=== PATIENT | male | born 1950 | race Caucasian/White ===

== ENCOUNTER 2023-04-18 15:48 | Inpatient (IN) | payer BC, MEDICARE, SELFPAY ==
[2023-04-18] VITALS (12 sets, daily range): BP systolic 146–200; BP diastolic 84–109; BMI 35.2; BMI 33.8
--- NOTE | 2023-04-18 10:49 | ED.GENMED ---
History of Present Illness
General
Chief Complaint: Breathing Problem
Source: patient
Exam Limitations: none
Time Seen by Provider: 04/18/23 10:20
Nursing documentation reviewed up to this point in time: agreed with
Travel History
Have you had any contact with someone who has COVID-19?: No
Do you have any symptoms of coronavirus? Fever > 100 degrees, chills, cough, shortness of breath, sore throat, loss of taste or smell, muscle aches, or headache?: Yes
Symptoms:: SOB
History of Present Illness
History of Present Illness:
PT IS A 73 Y/O M with h/o IDDM, HTN, HLD, neuropathy
chronic lymphedema
here with REDDING that started about 4 days ago
he noticed that with walking he felt out of breath. it is gradually worsening and now shorter distances are causing him to feel winded.
he has had an occasional left upper chest pinching sensation, just lasting a second or two over the past few days which is not exertional
today he had to stop at the top of his steps because he was winded. this is unusual
he has had a little cough, nonproductive, no fever.
has chronic swelling in his legs, L>R and usually L is a little pink; this is abount unchanged to him
took his lisinopril this am and bp is usually controlled
no shortness of breath at rest.
Past History
Past History
ED Past Medical History: HTN, Hypercholesterolemia, IDDM and Other (Right eye cataract scar)
ED Past Surgical History: None
Social History
Tobacco: Non-smoker
Alcohol: None
Personal: Single
Living: alone
Employment: Employed
Phy Exam
Physical Exam
Physical Exam:
GENERAL: Alert , in no apparent distress
EYE: pupils equal and reactive
NECK: Supple
ENT: o/p clr, mmm.
CARDIAC: Regular rate and rhythm .
LUNGS: Clear breath sounds bilaterally, no acute respiratory distress, no wheezes/rales/rhonchi
ABDOMEN: Soft, without focal tenderness, no r/g, no cvat, normal bowel sounds
NEUROLOGICAL: Alert and oriented, no focal neuro deficits
SKIN: Warm and dry, skin intact
msk: moderate edema b/l L>R with slight redness L leg neg kemi's sign
PSYCH: Normal and appropriate interaction.
Scores
Heart Failure Risk
Heart Failure Risk Score: Not Applicable
Course
Orders/Labs/Results
Orders:
Orders
04/18/23 11:20
COVID-19 Antigen Urgent
Source: Nasal Swab
Influenza A+B Rapid Molecular Urgent
GHADA Source: Nasal Swab
Specimen Description:
04/18/23 11:28
Complete Blood Count/With Diff Urgent
Comprehensive Metabolic Panel Urgent
D-Dimer Urgent
NT-proBNP Urgent
Troponin I Urgent
04/18/23 12:04
CT Chest Pe Study Urgent
Comment:
Reason For Exam: sob, cp, elevated dimer
04/18/23 12:09
Venous Doppler Lwr Ext Bilat [US Periph Venous LOWER Ext Zac] Urgent
Comment:
Reason For Exam: lower leg swelling
04/18/23 12:24
EKG [Electrocardiogram (*1)] Urgent
Reason for Study: Chest Pain
EKG- Treatment ONCE
04/18/23 12:[address] Non Medication Order As Directed
Physician Order: PTT 6 hours after initial start of Heparin infusion
Above order entered?: Yes
04/18/23 12:40
PTT Urgent
Comment: Obtain baseline before beginning heparin infusion if not already collected
04/18/23 12:42
Heparin 9,400 units IV PRN PRN
04/18/23 12:44
Heparin 4,700 units IV PRN PRN
04/18/23 12:45
Heparin 32937 Units/250 ml 25,000 units in 250 ml IV PER PROTOCOL
Weight to be used for heparin protocol in kilograms (kg):: 117.7
Protocol:: DVT/PE
PTT Goal Range to be used:: PTT 73 to 111 seconds
Order type:: Initial
INITIAL Infusion Dose (UNITS/KG/hr) & then follow protocol:: 18 units/kg/hr
Infusion Dose in UNITS/hr & then follow protocol (UNITS/hr):: 2,000
INFUSION RATE in mL/hr & then follow protocol (mL/hr):: 20
For DVT/PE algorithm, re-bolus for low PTT?: Yes
PTT less than or equal to 64 seconds:: Re-bolus 80 units/kg (max 10,000units). Increase by 500 units/hr
(+ 5mL/hr)
PTT 64.1 to 72.9 seconds:: Re-bolus 40 units/kg (max 5,000 units). Increase by 200 units/hr
(+ 2mL/hr)
PTT 73 to 111 seconds:: Target Range. No change in rate.
PTT 111.1 to 130.9 seconds:: Decrease rate by 200 units/hr (- 2 mL/hr)
PTT 131 to 199.9 seconds:: HOLD for 1 hr. Then decrease by 400 units/hr (- 4mL/hr)
PTT greater than or equal to 200 seconds:: HOLD for 2 hrs & Notify Provider. Then decrease by 500 units/hr
(- 5mL/hr)
Lab follow-up:: Each change, PTT q6h until 2 consecutive are therapeutic. Then
PTT daily.
04/18/23 12:48
Heparin 9,400 units IV NOW STA
04/18/23 18:55
PTT Urgent
Abnormal Lab Results
04/18/23
11:28
Abs Immat Gran (auto) 0.1 H 10^3/uL
(0-0.05)
Absolute Monos (auto) 0.8 H 10^3/uL
(0.1-0.6)
Immature Gran % 0.9 H %
(0-0.5)
Monocytes % 9.4 H %
(1.7-9.3)
D-Dimer 6.78 H ug/mlFEU
(0.00-0.50)
Sodium 131 L mmol/L
(135-145)
Potassium 5.8 H mmol/L
(3.5-5.1)
BUN 26 H mg/dl
(9-20)
Glucose 199 H mg/dl
(70-99)
Troponin I 0.045 H* ng/ml
Total Protein 6.2 L g/dl
(6.3-8.2)
Albumin 3.1 L g/dl
(3.5-5.0)
04/18/23 11:28
04/18/23 11:28
Vital Signs
Initial and Last Documented VS:
Initial Vital Signs
Temp Pulse Resp BP Pulse Ox
98.4 F 81 18 190/97 94
04/18/23 09:51 04/18/23 09:51 04/18/23 09:51 04/18/23 09:51 04/18/23 09:51
Last Documented Vital Signs
Temp Pulse Resp BP Pulse Ox
98.4 F 65 15 192/100 96
04/18/23 09:51 04/18/23 13:30 04/18/23 13:30 04/18/23 13:00 04/18/23 13:30
MDM/Problems Addressed
Differential Diagnosis Includes:
chf, PE, acs, pneumoniia
MDM/Problems Addressed:
73 y/o M with h/o IDDM, htn; lymphedema;chronically L leg is larger than R
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 orr who recommended we
treat the patient with anticoagulation not IR;
hospitalist aware
dr. john was celio to make dr. lloyd aware, pulm.
*Critical Care Note
Total Time (30-74mins, 75-104mins- exclusive of procedures): Not Applicable
ED Attending Note
-
Portions of this chart may have been created with voice recognition software.� Occasional wrong word or��sound alike� substitutions may have occurred due to the inherent limitations of voice recognition software.
Discharge Plan
Departure
Patient Disposition: Admit
Date of Disposition: 04/18/23
Time of Disposition: 12:37
Admit to: IMU
Presentation/result/management discussed w/ accepting MD/DO: Hospitalist
Condition: Fair
Covid-19: Not Applicable
Discharge Problem:
Bilateral pulmonary embolism
Prescriptions:
No Action
Centrum Silver 1 EACH tablet
1 tab PO DAILY
atorvastatin 20 MG tablet
20 mg PO DAILY
cyanocobalamin (vitamin B-12) 1,000 mcg Tablet
1,000 mcg PO DAILY
gabapentin 100 mg Capsule
100 mg PO DAILY
insulin lispro [Humalog KwikPen Insulin] 100 unit/mL insulin pen
8 unit SC AC
lisinopril 20 mg Tablet
20 mg PO DAILY
insulin glargine [Lantus Solostar U-100 Insulin] 100 unit/mL (3 mL) Insulin Pen
25 unit SC HS
naproxen sodium [Aleve] 220 mg Capsule
220 mg PO DAILY
hydralazine 10 mg tablet
10 mg PO TID
Patient Comments:
04/18/2023, last filled 01/24/2023 for a 30-day supply.
Referrals:
Dean Aleman MD [Family Provider] -
Interventions
Interventions:
*Risk Screen - Suicide Last Done: 04/18/23 11:14
*General Assessment Last Done: 04/18/23 11:14
*Neglect/Abuse Screening Last Done: 04/18/23 11:14
ED- Fall Risk Assessment Last Done: 04/18/23 11:14
*ED COVID-19 Vaccine History Last Done: 04/18/23 11:14
ED- Cardiac Assessment Last Done: 04/18/23 11:15
ED- Pulmonary Assessment Last Done: 04/18/23 11:15
[2023-04-18 11:58] LABS: % Basophils 1.2 % (0-2); % Eosinophils 2.3 % (0-6); % Immature Granulocytes 0.9 % (0-0.5); % Lymphocytes 24.3 % (20.5-51.1); % Monocytes 9.4 % (1.7-9.3); % Neutrophils 61.9 % (42.2-75.2); Absolute Basophils 0.1 10^3/uL (0-0.2); Absolute Eosinophils 0.2 10^3/uL (0-0.7); Absolute Immature Granulocytes 0.1 10^3/uL (0-0.05); Absolute Monocytes 0.8 10^3/uL (0.1-0.6); Absolute Neutrophils 5.1 10^3/uL (1.4-6.5); D-Dimer 6.78 ug/mlFEU (0.00-0.50); Hematocrit 42.8 % (39.0-52.0); Mean Corpuscular Hgb 29.8 pg (27.0-31.0); Mean Corpuscular Volume 84.9 fL (80.0-94.0); Mean Platelet Volume 9.9 fL (7.4-10.4); Nucleated Red Blood Cells % 0 % (-); Platelet Count 190 10^3/uL (130-400); Red Blood Cell Count 5.04 10^6/uL (4.70-6.10); Red Cell Dist. Width 13.6 % (11.5-14.5); White Blood Cell Count 8.2 10^3/uL (4.8-10.8)
[2023-04-18 12:00] LABS: COVID-19 Antigen Negative (Negative)
[2023-04-18 12:00] LABS: ALT (SGPT) 25 U/L (0-50); AST (SGOT) 28 U/L (17-59); Albumin 3.1 g/dl (3.5-5.0); Alkaline Phosphatase 95 U/L (38-126); Blood Urea Nitrogen 26 mg/dl (9-20); Calcium 8.6 mg/dl (8.4-10.2); Carbon Dioxide 25 mmol/L (22-30); Chloride 104 mmol/L (98-107); Estimated Creatinine Clearance 80 ml/min; Glucose 199 mg/dl (70-99); Potassium 5.8 mmol/L (3.5-5.1); Sodium 131 mmol/L (135-145); Total Bilirubin 0.8 mg/dl (0.2-1.3); Total Protein 6.2 g/dl (6.3-8.2); eGFR > 60.00
[2023-04-18 12:13] LABS: NT-proBNP 634 pg/ml; Troponin I 0.045 ng/ml
--- NOTE | 2023-04-18 12:33 | ED TECH ---
A PERT ALERT was called# [id number] # Per ( [facility])@ 12:30 PM .
[2023-04-18] MEDS: HEPARIN 9400 UNITS IV (12:53)
[2023-04-18] MEDS: HEPARIN 25000 UNITS/250 ML IV (12:55)
--- NOTE | 2023-04-18 14:32 | HPS.HSE ---
Addendum entered and electronically signed by Valentin Golden MD 04/18/23 15:40:
I saw and examined the patient.
The LINUX UNIX ENGINEER or PA's note was reviewed and I agree with the note.
Comment:
73-year-old male with history of diabetes, hypertension, hyperlipidemia, neuropathy, chronic Edema coming in for dyspnea on exertion that worsened.� Symptoms initiated 4 days ago, and subsequently felt worsening shortness of breath during walking.�
Now walking short distances with symptoms.� Occasional pinching upper chest pain over the last few days.� 1 flight of stairs until feeling short of breath.� No URI symptoms.� Also has increased left lower extremity swelling compared to right.�
Hypertensive, heart rate 68.� PE noted with large central bilateral PE on CTA.� Concern for right heart strain, and small loculated pleural effusion at the right lung base.� Lower extremity ultrasounds with nonocclusive DVTs on bilateral lower
legs.� Labs with sodium 131, potassium 5.8, Trop 0.045. �proBNP 634.� Plan�echo.� Start heparin drip, anticipate Eliquis initiation.� Add IV hydralazine, placed back on oral hydralazine.� hold ACEi due to AK. Avoid overt hypotension, or aggressive
fluid resuscitation in order to avoid worsening strain. �Lokelma.� Trend troponins
Original Note:
Family Physician
-
Family Physician: Dean Aleman
Chief Complaint
-
Shortness of Breath
History of Present Illness
Patient is a 73 y/o male with PMH of insulin-dependent diabetes mellitus w/ neuropathy s/p bilateral hallux amputations, hypertension, and chronic lower extremity edema who presented to the ED complaining of dyspnea on exertion x 2 days. Patient
says he first had a cough on Sunday afternoon which has been occasionally productive of clear mucus. Later that evening, he noticed dyspnea on exertion. He went to work per usual on Sunday where the dyspnea worsened. He called his PCP on Sunday
who recommended an at-home covid test, which was negative. His PCP then recommended that he present to the ED. Work-up in the emergency department reveal central bilateral pulmonary emboli with evidence of right heart strain. Patient denies any
prior history of DVT/PE. He denies recent hospitalization/extended period of immobilization. Patient says he has never had a colonoscopy, and is unaware if his PCP has been checking his PSA.
Medical History
Past Medical History
Past Medical History: Reports Other
Additional Past Medical History:
Essential Hypertension
Hyperlipidemia
Diabetes Mellitus, Insulin Dependence
Peripheral Neuropathy
Past Surgical History: Reports Other
Additional Past Surgical History:
Right Knee Replacement
Bilateral Great Toe Amputation
Left 1st Metatarsal Head Resection
Social History
Tobacco: Non-smoker
Alcohol: None
Drug: None
Employment: Employed ([employer])
Family History
Family History: Adopted
Allergies / Home Medications
Allergies reflects when Allergies were last updated in [employer]
Home Medications with original date entered in [employer]
Allergy/Medication List:
Allergies
Allergy/AdvReac Type Severity Reaction Status Date / Time
No Known Allergies Allergy Verified 04/18/23 09:51
Home Medications
atorvastatin 20 mg tablet 20 mg PO DAILY High cholesterol 04/11/19
jixteijt-nte-jxdmo acid 0.4 mg-lycopene 300 mcg-lutein 250 mcg tablet (Centrum Silver) 1 tab PO DAILY Supplement 04/11/19
cyanocobalamin (vitamin B-12) 1,000 mcg tablet 1,000 mcg PO DAILY Supplement 01/27/22
gabapentin 100 mg capsule 100 mg PO DAILY Pain 01/27/22
insulin lispro 100 unit/mL subcutaneous pen (Humalog KwikPen (U-100) Insulin) 8 unit SC AC Diabetes 01/27/22
hydralazine 10 mg tablet 10 mg PO TID Blood Pressure 04/18/23
insulin glargine 100 unit/mL (3 mL) subcutaneous pen (Lantus Solostar U-100 Insulin) 25 unit SC HS Diabetes 04/18/23
lisinopril 20 mg tablet 20 mg PO DAILY Blood Pressure 04/18/23
naproxen sodium 220 mg capsule (Aleve) 220 mg PO DAILY Pain 04/18/23
Review of Systems
-
A 12 point ROS was completed and negative except as noted: Yes
Constitutional: Denies Fever or Chills
Respiratory: Reports Trouble Breathing; Denies Cough
Cardiac: Denies Chest Pain
Physical Exam
Vital Signs
Vital Signs
Temp Pulse Resp BP Pulse Ox
98.4 F 68 19 192/100 98
04/18/23 09:51 04/18/23 14:30 04/18/23 14:30 04/18/23 13:00 04/18/23 14:30
Physical Exam
General: Comfortable and Conversant
HEENT: Anicteric, Moist mucous membranes and Other (Blind Right Eye)
Respiratory: Clear and Non Labored Respirations
Cardiac: S1/S2 and Regular Rhythm
GI: Soft, Non Tender and Other (Protuberant)
Rectal: Deferred by Provider
Musculoskeletal: No Clubbing, No Cyanosis and Other (chronic lower extremity per patient - At present LLE edema appears greater than RLE which patient notes is usually the opoosite)
Skin: Warm, Dry and Other (LLE with mild erythema with increased warmth to touch)
Laboratory Results
-
04/18/23 11:28
04/18/23 11:28
Laboratory Results
APTT 30.0 Sec (23.4-35.0) 04/18/23 12:40
Total Bilirubin 0.8 mg/dl (0.2-1.3) 04/18/23 11:28
AST 28 U/L (17-59) 04/18/23 11:28
ALT 25 U/L (0-50) 04/18/23 11:28
Alkaline Phosphatase 95 U/L (38-126) 04/18/23 11:28
Troponin I 0.045 ng/ml H* 04/18/23 11:28
Peripheral Vascular Ultrasound:
There is nonocclusive deep venous thrombosis in the popliteal vein and gastrocnemius veins
There is nonocclusive deep venous thrombosis in the left popliteal vein
Chest CT:
There are large central bilateral pulmonary emboli
There is right heart strain with an RV/LV ratio of 4.8/4.5
Data Reviewed
-
CT Scan: Report Reviewed by me
Lab Data: Labs Reviewed by me
Old Records: Reviewed
Impression/Plan
-
Submassive Pulmonary Embolism
-Admit to IMU for close monitoring
-Check Echocardiogram
-Continue heparin drip
Hyperkalemia
-Give dose of Lokelma
-Hold Lisinopril
-Recheck potassium later this evening
Non-Ischemic Myocardial Injury
-Continue to trend troponin
Essential Hypertension
-Lisinopril on hold due to hyperkalemia
-Continue Hydralazine as prior to admission
-Add hydralazine prn for elevated BP
Hyperlipidemia
-Continue atorvastatin
Diabetes Mellitus, Insulin-Dependent
-Continue Lantus and Novolog
-Monitor sugars and continue coverage insulin
Peripheral Neuropathy
-Continue Gabapentin
Code Status: Full Code
--- NOTE | 2023-04-18 16:05 | CON.PUL ---
Consultation
Consultation Request
Date/Time Consultation Requested: 04/18/2023 - 155
Date/Time Consultation Performed: 04/18/2023 - 1600
Requesting Provider: Jacquelyn Mitchell
Performing Provider: Dr. Sargent
Reason for Consultation: Acute bilateral PE
Medical History
-
Chief Complaint: SOB
History of Present Illness:
73-year-old male with a PMHx of DM type II, hyperlipidemia, hypertension, and history of torn retina in his right eye who presents with shortness of breath that started over this past weekend. He also reports a pinching feeling to his chest. In
the ER he was afebrile to 98.4 �F, heart rate 65, respiratory rate 15, BP elevated at 192/100, and saturating 96% on room air. Labs showed elevated potassium of 5.8, mild hyponatremia to 131, mildly elevated BUN of 26, hyperglycemia to 199, mildly
elevated troponin 0.045, and D-dimer elevated at 6780. COVID antigen negative. A CTA of the chest was ordered, showing a large central bilateral pulmonary embolism with right heart strain, a BELGICA GGO and a small right lower lobe loculated pleural
effusion. Lower extremity venous duplex showed bilateral DVT involving the popliteal veins and also the right gastrocnemius vein. A PERT alert was called, and systemic anticoagulation was recommended and not CDT or mechanical thrombectomy.
Pulmonary now consulted for further management/recommendations.
When I saw the patient he was in bed, at bedside, and he was in no acute distress. He was on room air comfortably. He has no personal history of lung disease, or history of venous thromboembolism. He does not know if he has any personal
family history of VTE as he is adopted and he never investigated into his family's medical history before. He denies any recent long car rides or log plane rides. 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
day.' He currently feels well with no shortness of breath. He also denies chest pain, headache, abdominal pain, fevers or chills. His left leg is swollen and he has a DVT in the bilateral popliteal and the right gastrocnemius vein. He says that
his left leg has been off and on swollen for many years. He says it gets like that from being on his feet for so many hours in a row while at work. 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 But he denies any other exposure to asbestos since that time.
PMHx: DM type II on insulin, hyperlipidemia, hypertension, morbid obesity, history of chronic ulcer foot, History of torn retina (right eye)
PSHx: Right knee replacement; right eye surgery, Right great toe amputation (April 2019), left great toe amputation (January 2022), port placement and removal
Past Medical History
Past Medical History: Other (Above as per HPI)
Past Surgical History: Other (Above as per HPI)
Social History
Tobacco: Non-smoker
Alcohol: None
Drug: None
Family History
Family History: Other (Unknown family history - adopted)
Allergies / Home Medications
Allergies
Allergy/AdvReac Type Severity Reaction Status Date / Time
No Known Allergies Allergy Verified 04/18/23 09:51
Home Medications
Medication Instructions Recorded Confirmed Last Taken Type
atorvastatin 20 mg tablet 20 mg PO DAILY High cholesterol 04/11/19 04/18/23 04/18/23 History
jpqlhfdn-ifn-isbcq acid 0.4 1 tab PO DAILY Supplement 04/11/19 04/18/23 04/18/23 History
mg-lycopene 300 mcg-lutein 250 mcg
tablet (Centrum Silver)
cyanocobalamin (vitamin B-12) 1,000 mcg PO DAILY Supplement 01/27/22 04/18/23 04/18/23 History
1,000 mcg tablet
gabapentin 100 mg capsule 100 mg PO DAILY Pain 01/27/22 04/18/23 04/18/23 History
insulin lispro 100 unit/mL 8 unit SC AC Diabetes 01/27/22 04/18/23 04/18/23 History
subcutaneous pen (Humalog KwikPen
(U-100) Insulin)
hydralazine 10 mg tablet 10 mg PO TID Blood Pressure 04/18/23 04/18/23 04/18/23 History
insulin glargine 100 unit/mL (3 25 unit SC HS Diabetes 04/18/23 04/18/23 04/17/23 History
mL) subcutaneous pen (Lantus
Solostar U-100 Insulin)
lisinopril 20 mg tablet 20 mg PO DAILY Blood Pressure 04/18/23 04/18/23 04/18/23 History
naproxen sodium 220 mg capsule 220 mg PO DAILY Pain 04/18/23 04/18/23 04/18/23 History
(Aleve)
Review of Systems
-
History Source: Patient
All other systems: Negative unless noted (12 point ROS performed and is negative unless mentioned above.)
Vitals / Labs / Diagnostic Testing
Vital Signs
Temp Pulse Resp BP Pulse Ox
98.4 F 65 15 192/100 96
04/18/23 09:51 04/18/23 13:30 04/18/23 13:30 04/18/23 13:00 04/18/23 13:30
Lab Data
04/18/23 11:28
04/18/23 11:28
Laboratory Results
04/18/23
12:40
APTT 30.0
Microbiology
04/18/23 11:20 Nasal Swab Influenza Types A & B (FRIDA) - Final
Negative for Influenza A & B, NAAT
Negative results must be combined with clinical observations
and patient history.
Nucleic Acid Amplification test (NAAT)performed on the
[employer] platform.
Diagnostic Testing:
Physical Exam
-
HEENT: Normocephalic and Anicteric
Cardiovascular: S1/S2 and Peripheral Edema (LLE +2; right leg has no edema)
Respiratory: Clear, Wheeze (negative), Rales (negative), Rhonchi (negative) and Non-Labored Respirations
GI: Soft and Non Distended
Neurology: Awake and Alert
Skin: Warm and Dry
General: Comfortable
Assessment
-
Assessment: 73-year-old male with a PMHx of DM type II, hyperlipidemia, hypertension, and history of torn retina in his right eye who presents with shortness of breath that started over this past weekend. He also reports a pinching feeling to his
chest. In the ER he was afebrile to 98.4 �F, heart rate 65, respiratory rate 15, BP elevated at 192/100, and saturating 96% on room air. Labs showed elevated potassium of 5.8, mild hyponatremia to 131, mildly elevated BUN of 26, hyperglycemia to
199, mildly elevated troponin 0.045, and D-dimer elevated at 6780. COVID antigen negative. A CTA of the chest was ordered, showing a large central bilateral pulmonary embolism with right heart strain, a BELGICA GGO and a small right lower lobe
loculated pleural effusion. Lower extremity venous duplex showed bilateral DVT involving the popliteal veins and also the right gastrocnemius vein. A PERT alert was called, and systemic anticoagulation was recommended and not CDT or mechanical
thrombectomy. Pulmonary now consulted for further management/recommendations.
Chronic conditions SURG PHYSICIAN ASST: DM type II on insulin, hyperlipidemia, hypertension, morbid obesity, history of chronic ulcer foot, History of torn retina (right eye)
Impression:
#Bilateral submassive pulmonary embolism with high risk features including RV strain (radiographic and chemical evidence)
#Bilateral lower extremity DVT involving bilateral popliteal vein and right gastrocnemius vein
#Small right lower lobe pleural effusion (suspect this is chronic as there are regions of calcification along parietal pleural border)
#BELGICA GGO
Plan:
- Start systemic AC - use heparin gtt given the high clot burden he has in pulmonary arteries as well as his b/l LE DVT
- Check 2D-echo to assess right-sided pressures
- maintain MAP>65
- Monitor for sudden rise in heart rate >125�150bpm or sudden drop in SBP by >15-25% as this could mean that PE is worsening and patient could be developing or in impending obstructive shock
- Eventual outpatient hematology consultation for hypercoagulable workup
- if LLE becomes more erythematous and warm, then consider starting ABx for non-purulent cellulitis
- Replete K>3.5, Mg>1.8, PO4>3
- Goal BG 140-180mg/dL
- DVT ppx
Pulmonary service will continue to follow along. Eventual pulmonary outpatient follow-up with PFTs.
A moderate level of medical decision making was used for this encounter.
Data:
CTA Chest 04-18-2023:
There are large central bilateral pulmonary emboli
There is right heart strain with an RV/LV ratio of 4.8/4.5
There is small loculated pleural effusion at the right lung base
There is a 3 cm area of groundglass interstitial airway disease at the left lung apex
LE Venous Duplex 04-18-2023:
There is nonocclusive deep venous thrombosis in the popliteal vein and gastrocnemius veins on both lower extremities.
There is nonocclusive deep venous thrombosis in the left popliteal vein
[2023-04-18] MEDS: LOKELMA 10 GRAM PO (16:21)
[2023-04-18] MEDS: APRESOLINE 5 MG IV (16:54)
[2023-04-18 18:42] LABS: Troponin I 0.038 ng/ml
[2023-04-18 18:55] LABS: Glucose - Point of Care 121 mg/dl (70-99)
[2023-04-18] MEDS: APRESOLINE 10 MG PO ×2 (18:55→22:09)
[2023-04-18] MEDS: NOVOLOG FLEXPEN 8 UNITS SC (19:40)
[2023-04-18 20:09] LABS: Potassium 4.2 mmol/L (3.5-5.1)
[2023-04-18 20:33] LABS: APTT > 200 Sec (23.4-35.0)
[2023-04-18] MEDS: LANTUS 0.25 UNITS SC (22:08)
[2023-04-18 22:19] LABS: Glucose - Point of Care 136 mg/dl (70-99)
[2023-04-19] VITALS (19 sets, daily range): BP systolic 131–212; BP diastolic 80–118; BMI 31.9
--- NOTE | 2023-04-19 00:28 | PTCARENOTE ---
Addendum entered by Georgette Valencia 04/19/23 05:24:
BP 212/118. PRN hydralazine given, per APR. Pt remains asymptomatic. HR 50-60
Addendum entered by Georgette Valencia 04/19/23 04:25:
Pt had episodes of SB on monitor throughout shift while sleeping. HR as low as 49. Pt remained asymptomatic. BP elevated 170s systolic, but not within parameters of PRN. Pt maintained bedrest throughout this shift. Dentures placed in denture cup in
bathroom. Pt using urinal appropriately. Heparin gtt maintained, see worklist documentation.
Original Note:
Pt AAOx3, pleasant and cooperative. SR, BP elevated, but resolved with scheduled medication. Assessment as documented. Heparin gtt in place through R AC IV, titrated per protocol. Call whatley within reach. Pt rings appropriately and follows directions.
[2023-04-19] MEDS: HEPARIN 25000 UNITS/250 ML IV (03:45)
[2023-04-19] MEDS: APRESOLINE 5 MG IV ×2 (05:12→18:30)
[2023-04-19 05:40] LABS: APTT 143.4 Sec (23.4-35.0)
[2023-04-19 05:42] LABS: Hematocrit 41.8 % (39.0-52.0); Hemoglobin 14.6 g/dL (13.0-18.0); Mean Corp Hgb Conc. 34.9 g/dL (33.0-37.0); Mean Corpuscular Hgb 29.4 pg (27.0-31.0); Mean Corpuscular Volume 84.3 fL (80.0-94.0); Mean Platelet Volume 9.3 fL (7.4-10.4); Platelet Count 180 10^3/uL (130-400); Red Blood Cell Count 4.96 10^6/uL (4.70-6.10); Red Cell Dist. Width 13.6 % (11.5-14.5); White Blood Cell Count 7.9 10^3/uL (4.8-10.8)
[2023-04-19 05:56] LABS: Blood Urea Nitrogen 21 mg/dl (9-20); Calcium 8.7 mg/dl (8.4-10.2); Carbon Dioxide 23 mmol/L (22-30); Chloride 104 mmol/L (98-107); Estimated Creatinine Clearance 94 ml/min; Glucose 111 mg/dl (70-99); Magnesium 2.2 mg/dl (1.6-2.3); Potassium 4.2 mmol/L (3.5-5.1); Sodium 134 mmol/L (135-145); eGFR > 60.00
[2023-04-19 07:33] LABS: Glucose - Point of Care 112 mg/dl (70-99)
[2023-04-19] MEDS: NOVOLOG FLEXPEN 8 UNITS SC ×2 (08:17→18:16)
[2023-04-19] MEDS: LIPITOR 20 MG PO (08:18)
[2023-04-19] MEDS: NEURONTIN 100 MG PO (08:18)
[2023-04-19] MEDS: APRESOLINE 10 MG PO ×3 (08:18→21:22)
--- NOTE | 2023-04-19 08:28 | W.PN.PUL3 ---
Today's Communication / Plan
-
Continue systemic AC --> ok to start NOAC tonight as long as pt can afford medication once he is discharged. Can consult CM to help clarify costliness of Eliquis
Maintain SpO2>94%
Up OOB as tolerated
Encourage IS
If patient remains asymptomatic tomorrow and still on room air with SpO2 >95%, then I am ok with him being discharged home tomorrow from pulmonary standpoint
We will continue to follow along while he remains inpatient with eventual pulmonary outpatient follow-up with PFTs.
Assessment
-
Assessment: 73-year-old male with a PMHx of DM type II, hyperlipidemia, hypertension, and history of torn retina in his right eye who presents with shortness of breath that started over this past weekend. He also reports a pinching feeling to his
chest. In the ER he was afebrile to 98.4 �F, heart rate 65, respiratory rate 15, BP elevated at 192/100, and saturating 96% on room air. Labs showed elevated potassium of 5.8, mild hyponatremia to 131, mildly elevated BUN of 26, hyperglycemia to
199, mildly elevated troponin 0.045, and D-dimer elevated at 6780. COVID antigen negative. A CTA of the chest was ordered, showing a large central bilateral pulmonary embolism with right heart strain, a BELGICA GGO and a small right lower lobe
loculated pleural effusion. Lower extremity venous duplex showed bilateral DVT involving the popliteal veins and also the right gastrocnemius vein. A PERT alert was called, and systemic anticoagulation was recommended and not CDT or mechanical
thrombectomy. Pulmonary now consulted for further management/recommendations.
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
Impression:
#Bilateral submassive pulmonary embolism with high risk features including RV strain (radiographic and chemical evidence) with acute cor pulmonale
#Bilateral lower extremity DVT involving bilateral popliteal vein and right gastrocnemius vein
#Small right lower lobe pleural effusion (suspect this is chronic as there are regions of calcification along parietal pleural border)
#BELGICA GGO
Plan:
- Continue systemic AC w/ heparin gtt given the high clot burden he has in pulmonary arteries as well as his b/l LE DVT --> Ok to start NOAC tonight as long as pt can afford medication once discharged
- TTE shows normal RV size and function, with PASP elevated at 48mmHg
- Maintain MAP>65
- Monitor for sudden rise in heart rate >125�150bpm or sudden drop in SBP by >15-25% as this could mean that PE is worsening and patient could be developing or in impending obstructive shock
- Eventual outpatient hematology consultation for hypercoagulable workup
- if LLE becomes more erythematous and warm, then consider starting ABx for non-purulent cellulitis
- Replete K>3.5, Mg>1.8, PO4>3
- Goal BG 140-180mg/dL
- DVT ppx
If patient remains asymptomatic tomorrow and still on room air with SpO2 >95%, then I am ok with him being discharged home tomorrow from pulmonary standpoint. We will continue to follow along while he remains inpatient. Eventual pulmonary
outpatient follow-up with PFTs.
A moderate level of medical decision making was used for this encounter.
Data:
CTA Chest 04-18-2023:
There are large central bilateral pulmonary emboli
There is right heart strain with an RV/LV ratio of 4.8/4.5
There is small loculated pleural effusion at the right lung base
There is a 3 cm area of groundglass interstitial airway disease at the left lung apex
LE Venous Duplex 04-18-2023:
There is nonocclusive deep venous thrombosis in the popliteal vein and gastrocnemius veins on both lower extremities.
There is nonocclusive deep venous thrombosis in the left popliteal vein
TTE 04-19-2023:
�Normal left ventricular size, wall thickness and systolic function.
�No regional wall motion abnormalities are seen.
�LV ejection fraction is 55-60% by Ramirez's method of discs.
�Stage I diastolic dysfunction suggestive of abnormal relaxation.
�Normal right ventricular size and function.
�Mild tricuspid regurgitation.
�Estimated pulmonary artery pressure of 48 mmHg, assuming a right atrial
�pressure of 3 mmHg.
�No prior study available for comparison.
Subjective Data
-
Date of Service:
Date of Service: April 19, 2023
Chief Complaint: Pulmonary Follow Up
Subjective:
Pt seen this AM. Feels well. at bedside. He remains on heparin gtt. Left leg is less swollen and less red. No issues overnight. He denies chest pain, PULIDO, SOB, abd pain, N/V/f/c.
Review of Systems
General: Other (negative unless mentioned above)
Objective Data
Data Reviewed
Vital Signs / I&O / Oxygen:
Vital Signs
Temp Pulse Resp BP Pulse Ox
98.2 F 74 24 164/99 95
04/19/23 11:16 04/19/23 10:45 04/19/23 10:45 04/19/23 10:45 04/19/23 10:45
Intake and Output
04/18/23 04/19/23 04/20/23
06:59 06:59 06:59
Intake Total 240 / 240
Output Total 975 / 975
Balance -975 / -975 240 / 240
SaO2 95
Nasal Cannula flow liters per 96
minute
Physical Exam
General: Comfortable
HEENT: Normocephalic and Anicteric
Cardiovascular: S1-S2 and Peripheral Edema (+1 left leg edema)
Respiratory: Clear, Wheeze (n), Crackles (n), Rhonchi (n) and Non-Labored Respirations
GI: Soft, Non Distended, Non Tender and Normal Bowel Sounds
Neurology: AO x 3
Skin: Warm, Dry and Rash (erythema seen on anterior LLE)
Labs/Micro/Reports
Lab Data
04/19/23 05:08
04/19/23 05:08
Laboratory Results
04/18/23 04/18/23 04/19/23
12:40 19:49 05:08
APTT 30.0 > 200 H* 143.4 H
Microbiology
04/18/23 11:20 Nasal Swab Influenza Types A & B (FRIDA) - Final
Negative for Influenza A & B, NAAT
Negative results must be combined with clinical observations
and patient history.
Nucleic Acid Amplification test (NAAT)performed on the
[employer] platform.
[2023-04-19 08:54] LABS: Glycohemoglobin (HgbA1c) 10.9 % (4.0-5.6)
--- NOTE | 2023-04-19 09:08 | PTCARENOTE ---
Patient received from night supervisor. Patient resting comfortably in bed. AAO, VSS. No events noted over night. No complaints of pain. Currently on Heparin gtt 1500 units/hr which was just increased from 1100 units/hr due to PTT assessment.
Compliant with bed rest for now. Scheduled for ECHO today. Call whatley in reach.
[2023-04-19] MEDS: ZESTRIL 20 MG PO (10:10)
--- NOTE | 2023-04-19 12:03 | CARDSERVLU ---
Echocardiogram with Lumason completed after protocol screening completed. Allergies verified.
Patent IV site: Left antecubital
IV site flushed with 0.9% NaCl pre and post administration.
Diluted bolus method utilized to enhance visualization of ventricular noble.
Total volume given: _4___ mL
Patient tolerated all procedures well without complications.
Procedure and Lumason given by Silvia Contreras Legal Examiner.
[2023-04-19 12:45] LABS: Glucose - Point of Care 87 mg/dl (70-99)
[2023-04-19] MEDS: NOVOLOG FLEXPEN SC (12:50)
--- NOTE | 2023-04-19 14:32 | CM ---
CM following re: discharge planning.
Reviewed pt's chart, met with [t.
Pt is a 73 year old male, admitted with primary dx of PE.
The patient reports he resides alone in a two story home with two steps to enter. The patient has a rolling walker, cane, shower chair, shower rails, secondary rails on stairs, and outside rails entering into the home. Pt reports she just built a
walking shower. Pt reports he mostly uses a cane. Pt reports he has no immediate family and his support systems consist of many friends that can help as needed. The patient has had [facility] VN in the past. Pt expressed his desire to return back home
at discharge.
PCP: Dean Aleman.
Pharmacy: [facility].
D/C plan: pt expressed his desire to return back home with friends support.
CM will follow with discharge plan updates as hospitalization progresses
[2023-04-19 14:44] LABS: APTT 43.2 Sec (23.4-35.0)
[2023-04-19] MEDS: HEPARIN 9400 UNITS IV (15:01)
--- NOTE | 2023-04-19 15:22 | W.PN.HOSP.TC ---
Today's Communication/Plan
-
Transition to [facility]
PT/OT
Assessment / Plan
Assessment / Plan
Submassive Pulmonary Embolism
B/L DVT
-Admit to IMU for close monitoring
-Echocardiogram�no evidence of T-spine, stage I diastolic dysfunction; EF 55 to 60%
-Continue heparin drip�transition to [facility] this evening
� Will need hematology workup outpatient
�PT/OT
Hyperkalemia
-Give dose of Lokelma
-Resolved
Non-Ischemic Myocardial Injury
-Continue to trend troponin
�Most likely secondary to PE
� Troponins flat
Essential Hypertension
-Resume lisinopril, monitor BMP
-Continue Hydralazine as prior to admission
-Add hydralazine prn for elevated BP
Hyperlipidemia
-Continue atorvastatin
Diabetes Mellitus, Insulin-Dependent
-Continue Lantus and Novolog
-Monitor sugars and continue coverage insulin
- Hemoglobin A1c 10.9, follow-up outpatient for adjustment
#Hyponatremia
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
� Free water titration
� Continue to monitor
Peripheral Neuropathy
-Continue Gabapentin
Code Status: Full Code
Anticipated Discharge: 24 - 48 hours
Subjective/Interval History
-
Date of Service: April 19, 2023
feels well
Objective Data
-
Labs:
Laboratory Results
04/19/23 04/19/23 04/19/23
05:08 14:23 21:15
WBC 7.9
Hgb 14.6
Hct 41.8
Plt Count 180
APTT 143.4 H 43.2 H Pending
Sodium 134 L
Potassium 4.2
Chloride 104
Carbon Dioxide 23
BUN 21 H
Creatinine 0.9
Glucose 111 H
Calcium 8.7
Vital Signs:
Vital Signs
Temp Pulse Resp BP Pulse Ox
98.2 F 74 24 164/99 95
04/19/23 11:16 04/19/23 10:45 04/19/23 10:45 04/19/23 10:45 04/19/23 10:45
I&O
04/18/23 04/19/23 04/20/23
06:59 06:59 06:59
Intake Total 240 / 240
Output Total 975 / 975
Balance -975 / -975 240 / 240
Review of Systems
-
History Source: Patient
All other systems: Not reviewed unless documented
Physical Exam
-
General: Well Developed, No Apparent Distress, Comfortable and Obese
HEENT: Atraumatic, Moist Mucous Membranes and Other (right eye corneal opacity )
Respiratory: Clear to Auscultation
Cardiac: Regular Rhythm and S1/S2
GI: Soft, Nontender and Nondistended
Rectal: Negative Maroon Stools
Genito-urinary: No Costovertebral Tender
Musculoskeletal: No Cyanosis
Skin: Warm and Dry
Neuro: Oriented and Nonfocal/Grossly Intact; Negative Slurred Speech or Facial Droop
Hematologic / Lymphatic: No Lymphadenopathy
Data Reviewed
-
CT Scan: Image personally visualized and interpreted and Report Reviewed by me
Ultrasound: Image personally visualized and interpreted and Report Reviewed by me
Labs: Labs Reviewed by me
[2023-04-19 17:43] LABS: Glucose - Point of Care 104 mg/dl (70-99)
[2023-04-19] MEDS: ELIQUIS 10 MG PO (20:16)
[2023-04-19] MEDS: LANTUS 0.25 UNITS SC (21:22)
[2023-04-19 21:38] LABS: Glucose - Point of Care 100 mg/dl (70-99)
[2023-04-19 21:51] LABS: Hepatitis C Antibody Negative (Negative)
[2023-04-20] VITALS (13 sets, daily range): BP systolic 113–197; BP diastolic 79–129; PULSE 79–82; O2SAT 96–97; BMI 33.2
[2023-04-20] MEDS: APRESOLINE 5 MG IV (04:06)
[2023-04-20 04:32] LABS: Hematocrit 44.1 % (39.0-52.0); Hemoglobin 15.3 g/dL (13.0-18.0); Mean Corp Hgb Conc. 34.7 g/dL (33.0-37.0); Mean Corpuscular Hgb 29.3 pg (27.0-31.0); Mean Corpuscular Volume 84.5 fL (80.0-94.0); Platelet Count 193 10^3/uL (130-400); Red Blood Cell Count 5.22 10^6/uL (4.70-6.10); Red Cell Dist. Width 13.7 % (11.5-14.5); White Blood Cell Count 6.9 10^3/uL (4.8-10.8)
[2023-04-20 05:21] LABS: ALT (SGPT) 24 U/L (0-50); AST (SGOT) 30 U/L (17-59); Albumin 2.8 g/dl (3.5-5.0); Alkaline Phosphatase 83 U/L (38-126); Blood Urea Nitrogen 23 mg/dl (9-20); Calcium 8.8 mg/dl (8.4-10.2); Carbon Dioxide 21 mmol/L (22-30); Chloride 105 mmol/L (98-107); Estimated Creatinine Clearance 107 ml/min; Glucose 97 mg/dl (70-99); Potassium 4.2 mmol/L (3.5-5.1); Sodium 134 mmol/L (135-145); Total Bilirubin 0.9 mg/dl (0.2-1.3); Total Protein 5.8 g/dl (6.3-8.2); eGFR > 60.00
--- NOTE | 2023-04-20 05:44 | PTCARENOTE ---
no acute events overnight- pt given IV hydralazine x1 for high BP. heparin gtt stopped in beginning of shift and PO eliquis given.
[2023-04-20 07:58] LABS: Glucose - Point of Care 109 mg/dl (70-99)
[2023-04-20] MEDS: NOVOLOG FLEXPEN 8 UNITS SC ×2 (08:09→16:45)
[2023-04-20] MEDS: ELIQUIS 10 MG PO (08:11)
[2023-04-20] MEDS: APRESOLINE 10 MG PO (08:11)
[2023-04-20] MEDS: NEURONTIN 100 MG PO (08:12)
[2023-04-20] MEDS: ZESTRIL 20 MG PO (08:13)
[2023-04-20] MEDS: LIPITOR 20 MG PO (08:13)
--- NOTE | 2023-04-20 08:58 | W.PN.PUL3 ---
Today's Communication / Plan
-
Continue NOAC
Repeat TTE in 4-6 weeks
Maintain SpO2 >90-94%
Low-intermediate level activity for 30 days minimum, then can slowly increase exercise as tolerated
Patient is stable for discharge home per pulmonary standpoint. I will arrange for outpatient office follow up. Pulmonary service will sign off. Please re-consult if there are any additional questions or concerns, or if his respiratory status
deteriorates.
Assessment
-
Assessment: 73-year-old male with a PMHx of DM type II, hyperlipidemia, hypertension, and history of torn retina in his right eye who presents with shortness of breath that started over this past weekend. He also reports a pinching feeling to his
chest. In the ER he was afebrile to 98.4 �F, heart rate 65, respiratory rate 15, BP elevated at 192/100, and saturating 96% on room air. Labs showed elevated potassium of 5.8, mild hyponatremia to 131, mildly elevated BUN of 26, hyperglycemia to
199, mildly elevated troponin 0.045, and D-dimer elevated at 6780. COVID antigen negative. A CTA of the chest was ordered, showing a large central bilateral pulmonary embolism with right heart strain, a BELGICA GGO and a small right lower lobe
loculated pleural effusion. Lower extremity venous duplex showed bilateral DVT involving the popliteal veins and also the right gastrocnemius vein. A PERT alert was called, and systemic anticoagulation was recommended and not CDT or mechanical
thrombectomy. Pulmonary now consulted for further management/recommendations.
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
Impression:
#Bilateral submassive pulmonary embolism with high risk features including RV strain (radiographic and chemical evidence) with acute cor pulmonale
#Bilateral lower extremity DVT involving bilateral popliteal vein and right gastrocnemius vein
#Small right lower lobe pleural effusion (suspect this is chronic as there are regions of calcification along parietal pleural border)
#BELGICA GGO
Plan:
- Continue systemic AC --> transitioned to Eliquis last night. Please continue 10mg BID x 7 days then 5mg BID x 3 months, or potentially life long depending on provoked vs unprovoked - he will see hematology as outpatient to help with duration of
treatment
- TTE shows normal RV size and function, with PASP elevated at 48mmHg --> repeat TTE in 4-6 weeks
- Maintain MAP>65
- Eventual outpatient hematology consultation for hypercoagulable workup - I can refer him to them once I see him in office
- if LLE becomes more erythematous and warm, then consider starting ABx for non-purulent cellulitis --> so far his LLE appear to be less red, so I am not concerned for cellulitis at this time
- Replete K>3.5, Mg>1.8, PO4>3
- Goal BG 140-180mg/dL
- DVT ppx
Patient is stable for discharge home per pulmonary standpoint. I will arrange for outpatient office follow up. Pulmonary service will sign off. Thank you for allowing me to be involved in the care of this patient. Please re-consult if there are
any additional questions or concerns, or if his respiratory status deteriorates.
A moderate level of medical decision making was used for this encounter.
Data:
CTA Chest 04-18-2023:
There are large central bilateral pulmonary emboli
There is right heart strain with an RV/LV ratio of 4.8/4.5
There is small loculated pleural effusion at the right lung base
There is a 3 cm area of groundglass interstitial airway disease at the left lung apex
LE Venous Duplex 04-18-2023:
There is nonocclusive deep venous thrombosis in the popliteal vein and gastrocnemius veins on both lower extremities.
There is nonocclusive deep venous thrombosis in the left popliteal vein
TTE 04-19-2023:
�Normal left ventricular size, wall thickness and systolic function.
�No regional wall motion abnormalities are seen.
�LV ejection fraction is 55-60% by Ramirez's method of discs.
�Stage I diastolic dysfunction suggestive of abnormal relaxation.
�Normal right ventricular size and function.
�Mild tricuspid regurgitation.
�Estimated pulmonary artery pressure of 48 mmHg, assuming a right atrial
�pressure of 3 mmHg.
�No prior study available for comparison.
Subjective Data
-
Date of Service:
Date of Service: April 20, 2023
Chief Complaint: Pulmonary Follow Up
Subjective:
Pt seen today, he is doing well. Sitting in chair in NAD. at bedside. He feels no SOB or chest pain. No overnight events reported. He is eager to go home. He walked around with PT - no issues walking and no SOB reported. He is on room
air, breathing comfortably. Denies PULIDO, abd pain, back pain, diarrhea, f/c.
Review of Systems
General: Other (negative unless mentioned above)
Objective Data
Data Reviewed
Vital Signs / I&O / Oxygen:
Vital Signs
Temp Pulse Resp BP Pulse Ox
98.4 F 95 28 113/79 96
04/20/23 11:48 04/20/23 09:28 04/20/23 09:28 04/20/23 09:28 04/20/23 08:45
Intake and Output
04/19/23 04/20/23 04/21/23
06:59 06:59 06:59
Intake Total 360 / 360
Output Total 975 / 975 600 / 600
Balance -975 / -975 -240 / -240
SaO2 96
Nasal Cannula flow liters per 96
minute
Physical Exam
General: Comfortable
HEENT: Normocephalic and Anicteric
Cardiovascular: S1-S2 and Peripheral Edema (trace left leg edema; no edema on right leg)
Respiratory: Clear, Wheeze (n), Crackles (n), Rhonchi (n) and Non-Labored Respirations
GI: Soft, Non Distended, Non Tender and Normal Bowel Sounds
Neurology: AO x 3
Skin: Warm, Dry and Rash (erythema seen on anterior LLE)
Labs/Micro/Reports
Lab Data
04/20/23 04:12
04/20/23 04:12
Laboratory Results
04/19/23 04/19/23
14 21:15
APTT 43.2 H Cancelled
Microbiology
04/18/23 11:20 Nasal Swab Influenza Types A & B (FRIDA) - Final
Negative for Influenza A & B, NAAT
Negative results must be combined with clinical observations
and patient history.
Nucleic Acid Amplification test (NAAT)performed on the
[employer] platform.
--- NOTE | 2023-04-20 09:08 | PTCARENOTE ---
Patient received from security shift manager. Patient resting comfortably in bed. AAO, VSS. No events noted over night. No complaints of pain. Started Eliquis last night, heparin gtt off. PT to see this AM. Pending discharge. Call whatley in reach.
--- NOTE | 2023-04-20 11:49 | W.PN.HOSP.TC ---
Addendum entered and electronically signed by Valentin Golden MD 04/22/23 15:37:
Hypertensive Urgency
-adjust medications as listed below
Addendum entered and electronically signed by Valentin Golden MD 04/20/23 16:10:
[id number]
adjusted insulin as patient states he is noncompliant with dm regimen
Original Note:
Today's Communication/Plan
-
stop hydralazine
start amlodipine
eliquis
heme, pulm, pcp outpatient
f/u bmp outpatient
no strenous activity x 3 weeks
Assessment / Plan
Assessment / Plan
Submassive Pulmonary Embolism
B/L DVT
-Admit to IMU for close monitoring
-Echocardiogram�no evidence of D Sign, stage I diastolic dysfunction; EF 55 to 60%
-Cont Eliquis
� Will need hematology workup outpatient
-F/u Pulm outpatient
-No strenous activity x3 weeks
�PT/OT
Hyperkalemia
-Give dose of Lokelma
-Resolved
Non-Ischemic Myocardial Injury
-Continue to trend troponin
�Most likely secondary to PE
� Troponins flat
Essential Hypertension
-Resume lisinopril
-appears to have reflex hypertension with hydralazine
-Stop hydralazine
-Switch to amlodipine 5mg daily,
-Needs closer BP monitoring outpatient
Hyperlipidemia
-Continue atorvastatin
Diabetes Mellitus, Insulin-Dependent
-Continue Lantus and Novolog
-Monitor sugars and continue coverage insulin
- Hemoglobin A1c 10.9, follow-up outpatient for adjustment
#Hyponatremia
-mild, resolving
� Continue to monitor
-f/u bmp outpatient
Peripheral Neuropathy
-Continue Gabapentin
Code Status: Full Code
More than 30 minutes spent in discharge including
Final examination of the patient
Summarizing hospital stay
Instructions for continuing care to all relevant caregivers
Preparation of discharge records, prescriptions, and referral forms
Total time spent (35 in minutes):
Anticipated Discharge: Today
Subjective/Interval History
-
Date of Service: April 20, 2023
No acute events
Objective Data
-
Labs:
Laboratory Results
04/20/23
04:12
WBC 6.9
Hgb 15.3
Hct 44.1
Plt Count 193
Sodium 134 L
Potassium 4.2
Chloride 105
Carbon Dioxide 21 L
BUN 23 H
Creatinine 0.8
Glucose 97
Calcium 8.8
Total Bilirubin 0.9
AST 30
ALT 24
Alkaline Phosphatase 83
Vital Signs:
Vital Signs
Temp Pulse Resp BP Pulse Ox
97.9 F 95 28 113/79 96
04/20/23 07:23 04/20/23 09:28 04/20/23 09:28 04/20/23 09:28 04/20/23 08:45
I&O
04/19/23 04/20/23 04/21/23
06:59 06:59 06:59
Intake Total 360 / 360
Output Total 975 / 975 600 / 600
Balance -975 / -975 -240 / -240
Review of Systems
-
History Source: Patient
All other systems: Not reviewed unless documented
Physical Exam
-
General: Well Developed, No Apparent Distress, Comfortable and Obese
HEENT: Atraumatic, Moist Mucous Membranes and Other (right eye corneal opacity )
Respiratory: Clear to Auscultation
Cardiac: Regular Rhythm and S1/S2
GI: Soft, Nontender and Nondistended
Rectal: Negative Maroon Stools
Genito-urinary: No Costovertebral Tender
Musculoskeletal: No Cyanosis
Skin: Warm and Dry
Neuro: Oriented and Nonfocal/Grossly Intact; Negative Slurred Speech or Facial Droop
Hematologic / Lymphatic: No Lymphadenopathy
Data Reviewed
-
CT Scan: Image personally visualized and interpreted and Report Reviewed by me
Ultrasound: Image personally visualized and interpreted and Report Reviewed by me
Labs: Labs Reviewed by me
--- NOTE | 2023-04-20 11:53 | W.DS.TRANS ---
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
-
Discharge Instructions:
Discharge Diagnosis/Procedures
Submassive Pulmonary Embolism
B/L DVT
Diet Low Cholesterol,Low Fat
Activity No strenuous activity
Additional Activity no strenuous activity x 3 weeks and cleared by
PCP
Blood Work BMP in 1 week with pcp
Instructions:
Stand-Alone Forms:
Changes to Home Medications: Yes
Discharge Medications:
DC Medications w/original date entered in [facility]
atorvastatin 20 mg tablet 20 mg PO DAILY High cholesterol 04/11/19
rgqycrik-eqk-usbyg acid 0.4 mg-lycopene 300 mcg-lutein 250 mcg tablet (Centrum Silver) 1 tab PO DAILY Supplement 04/11/19
cyanocobalamin (vitamin B-12) 1,000 mcg tablet 1,000 mcg PO DAILY Supplement 01/27/22
gabapentin 100 mg capsule 100 mg PO DAILY Pain 01/27/22
insulin lispro 100 unit/mL subcutaneous pen (Humalog KwikPen (U-100) Insulin) 8 unit SC AC Diabetes 01/27/22
insulin glargine 100 unit/mL (3 mL) subcutaneous pen (Lantus Solostar U-100 Insulin) 25 unit SC HS Diabetes 04/18/23
lisinopril 20 mg tablet 20 mg PO DAILY Blood Pressure 04/18/23
amlodipine 5 mg tablet 5 mg PO QHS #30 tabs 04/20/23
apixaban 5 mg (74 tabs) tablets in a dose pack (Eliquis DVT-PE Treat Start) See Rx Instructions PO .COMPLEX #74 ea 04/20/23
Home Medication Changes
amlodipine 5 mg tablet 5 mg PO QHS #30 tabs 04/20/23
apixaban 5 mg (74 tabs) tablets in a dose pack (Eliquis DVT-PE Treat Start) See Rx Instructions PO .COMPLEX #74 ea 04/20/23
Pending Results: No
[2023-04-20 12:43] LABS: Glucose - Point of Care 77 mg/dl (70-99)
[2023-04-20] MEDS: NOVOLOG FLEXPEN SC (13:06)
--- NOTE | 2023-04-20 13:23 | PN.CDI ---
CDI
- -
CDI:
Physician Documentation Request
Admit Date: 04/18/23 15:48
Dear Doctor [place],
Clinical Indicators:
Patient admitted with bilateral pulmonary embolism.
04/19 PN, 'Essential Hypertension...appears to have reflex hypertension with hydralazine...Needs closer BP monitoring outpatient'
Medication adjustments: Amlodipine 5 mg po daily added.
B/P trend:
04/18/23
09:51 04/18/23
12:34 04/18/23
18:08
Blood pressure 190/97 200/96 185/108
04/19/23
08:18 04/19/23
18:00
Blood pressure 200/96 181/105
Please clarify which, if any of the following, is a more accurate diagnosis reflecting the type and acuity of the documented hypertension:
Essential primary hypertension only
Hypertensive Urgency - B/P is severely elevated (systolic > or = to 180 or diastolic > or = to 110) but there is no associated organ damage. Symptoms may include: headache, shortness of breath, nosebleeds, severe anxiety. Treatment usually consists
of addition to or adjusting of oral medications and does not generally necessitate hospitalization.
Other (please specify)
Use of terms such as suspected, likely, concern for, or probable (associated with a specific diagnosis that is being evaluated, monitored, or treated as if it exists) are acceptable and can be coded in the inpatient setting, when documented at the
time of discharge.
Thank you,
ANDERSON Campos RN
CDI Specialist
available via tiger text
Please use your independent medical judgment in providing your response.
[2023-04-20] MEDS: NORVASC 5 MG PO (15:32)
[2023-04-20] MEDS: FLUZONE HIGH-DOSE QUAD 2023-24 0.699999999999999956 ML IM (15:33)
[2023-04-20 16:41] LABS: Glucose - Point of Care 126 mg/dl (70-99)
--- NOTE | 2023-04-20 17:28 | CM ---
Patient with Dx Submassive Pulmonary Embolism, B/L DVT.
Spoke with patient who was preparing for d/c. The patient says he feels ready to go home today. He declined the offer for VN. His friend will transport him home and stay with him tonight.
No CM d/c needs identified.
Plan home today.
--- NOTE | 2023-04-20 18:25 | PTCARENOTE ---
Patient discharged home with all known belongings. Discharge instructions reviewed and all questions answered. Patient escorted to patient picker / packer via wheelchair and left with friend.
== END 2023-04-20 18:20 | disposition home or self-care (01) | DRG 175 ==
LOC: IMU 15:48
PROVIDERS: Physician Assistant; Physician Assistant Medical; ADMITTING PHYSICIAN Internal Medicine; CONSULT PHYSICIAN Internal Medicine Critical Care Medicine; EMERGENCY PHYSICIAN Emergency Medicine; FAMILY PHYSICIAN Family Medicine
PROC: 3E02340 Introduction of Influenza Vaccine into Muscle, Percutaneous Approach (ICD-10-PCS; 2023-04-20)
DX: I26.09 Other pulmonary embolism with acute cor pulmonale (principal); I5A Non-ischemic myocardial injury (non-traumatic); J90 Pleural effusion, not elsewhere classified; I82.433 Acute embolism and thrombosis of popliteal vein, bilateral; E22.2 Syndrome of inappropriate secretion of antidiuretic hormone; I10 Essential (primary) hypertension; E78.00 Pure hypercholesterolemia, unspecified; E11.40 Type 2 diabetes mellitus with diabetic neuropathy, unspecified; I16.0 Hypertensive urgency; I82.461 Acute embolism and thrombosis of right calf muscular vein; I51.89 Other ill-defined heart diseases; I89.0 Lymphedema, not elsewhere classified; E11.36 Type 2 diabetes mellitus with diabetic cataract; E11.65 Type 2 diabetes mellitus with hyperglycemia; Z96.651 Presence of right artificial knee joint; E87.5 Hyperkalemia; E66.01 Morbid (severe) obesity due to excess calories; Z23 Encounter for immunization; Z11.52 Encounter for screening for COVID-19; Z79.4 Long term (current) use of insulin; Z68.33 Body mass index [BMI] 33.0-33.9, adult; Z89.429 Acquired absence of other toe(s), unspecified side; Z91.199 Patient's noncompliance with other medical treatment and regimen due to unspecified reason
CPT/HCPCS: 71275; 80048; 80053; 82962; 83036; 83735; 83880; 84132; 84484; 85025; 85027; 85379; 85730; 86803; 87502; 87811; 90662; 93005; 93306; 93970; 96365; 96366; 97162; 97166; 99285; G0008; Q9950; Q9967

== ENCOUNTER → 2023-09-07 07:56 | Outpatient (REF) | payer BC, MEDICARE, SELFPAY | LOC: RAD 07:56 | PROVIDERS: ATTENDING PHYSICIAN Surgery; FAMILY PHYSICIAN Family Medicine | DX: L97.829 Non-pressure chronic ulcer of other part of left lower leg with unspecified severity (principal) | CPT/HCPCS: 73564 ==

== ENCOUNTER → 2023-09-07 12:17 | Outpatient (REF) | payer BC, MEDICARE, SELFPAY | LOC: WOUND 12:17 | PROVIDERS: ATTENDING PHYSICIAN Surgery; FAMILY PHYSICIAN Family Medicine | DX: L97.829 Non-pressure chronic ulcer of other part of left lower leg with unspecified severity (principal); I87.2 Venous insufficiency (chronic) (peripheral); E11.51 Type 2 diabetes mellitus with diabetic peripheral angiopathy without gangrene | CPT/HCPCS: 99204 ==

== ENCOUNTER → 2023-09-18 14:34 | Outpatient (REF) | payer BC, MEDICARE, SELFPAY | LOC: WOUND 14:34 | PROVIDERS: ATTENDING PHYSICIAN Surgery; FAMILY PHYSICIAN Family Medicine | DX: L97.829 Non-pressure chronic ulcer of other part of left lower leg with unspecified severity (principal); I87.2 Venous insufficiency (chronic) (peripheral); I73.9 Peripheral vascular disease, unspecified; Z79.01 Long term (current) use of anticoagulants; E11.51 Type 2 diabetes mellitus with diabetic peripheral angiopathy without gangrene; E11.40 Type 2 diabetes mellitus with diabetic neuropathy, unspecified; E11.65 Type 2 diabetes mellitus with hyperglycemia; S98.111A Complete traumatic amputation of right great toe, initial encounter; Z79.4 Long term (current) use of insulin; W01.0XXA Fall on same level from slipping, tripping and stumbling without subsequent striking against object, initial encounter | CPT/HCPCS: 97597; 97598 ==

== ENCOUNTER → 2023-09-25 13:28 | Outpatient (REF) | payer BC, MEDICARE, SELFPAY | LOC: WOUND 13:28 | PROVIDERS: ATTENDING PHYSICIAN Surgery; FAMILY PHYSICIAN Family Medicine | DX: L97.829 Non-pressure chronic ulcer of other part of left lower leg with unspecified severity (principal); I87.2 Venous insufficiency (chronic) (peripheral); I73.9 Peripheral vascular disease, unspecified; E11.51 Type 2 diabetes mellitus with diabetic peripheral angiopathy without gangrene; Z79.01 Long term (current) use of anticoagulants; Z79.4 Long term (current) use of insulin; E11.40 Type 2 diabetes mellitus with diabetic neuropathy, unspecified; E11.65 Type 2 diabetes mellitus with hyperglycemia; S98.111A Complete traumatic amputation of right great toe, initial encounter; Z89.419 Acquired absence of unspecified great toe; W01.0XXA Fall on same level from slipping, tripping and stumbling without subsequent striking against object, initial encounter | CPT/HCPCS: 97597 ==

== ENCOUNTER → 2023-10-11 10:10 | Outpatient (REF) | payer BC, MEDICARE, SELFPAY | LOC: WOUND 10:10 | PROVIDERS: ATTENDING PHYSICIAN Surgery; FAMILY PHYSICIAN Family Medicine | DX: L97.829 Non-pressure chronic ulcer of other part of left lower leg with unspecified severity (principal); I87.2 Venous insufficiency (chronic) (peripheral); I73.9 Peripheral vascular disease, unspecified; E11.51 Type 2 diabetes mellitus with diabetic peripheral angiopathy without gangrene; E11.40 Type 2 diabetes mellitus with diabetic neuropathy, unspecified; E11.65 Type 2 diabetes mellitus with hyperglycemia; S98.111A Complete traumatic amputation of right great toe, initial encounter; Z89.419 Acquired absence of unspecified great toe; Z79.4 Long term (current) use of insulin; Z79.01 Long term (current) use of anticoagulants; W01.0XXA Fall on same level from slipping, tripping and stumbling without subsequent striking against object, initial encounter | CPT/HCPCS: 11042; 11045 ==

== ENCOUNTER → 2023-10-16 08:38 | Outpatient (REF) | payer BC, MEDICARE, SELFPAY | LOC: WOUND 08:38 | PROVIDERS: ATTENDING PHYSICIAN Surgery; FAMILY PHYSICIAN Family Medicine | DX: L97.829 Non-pressure chronic ulcer of other part of left lower leg with unspecified severity (principal); I87.2 Venous insufficiency (chronic) (peripheral); I73.9 Peripheral vascular disease, unspecified; E11.51 Type 2 diabetes mellitus with diabetic peripheral angiopathy without gangrene; Z79.01 Long term (current) use of anticoagulants; Z79.4 Long term (current) use of insulin; E11.40 Type 2 diabetes mellitus with diabetic neuropathy, unspecified; E11.65 Type 2 diabetes mellitus with hyperglycemia; Z89.419 Acquired absence of unspecified great toe; S98.111A Complete traumatic amputation of right great toe, initial encounter | CPT/HCPCS: 11042; 11045 ==

== ENCOUNTER → 2023-10-23 13:38 | Outpatient (REF) | payer BC, MEDICARE, SELFPAY | LOC: WOUND 13:38 | PROVIDERS: ATTENDING PHYSICIAN Surgery; FAMILY PHYSICIAN Family Medicine | DX: L97.829 Non-pressure chronic ulcer of other part of left lower leg with unspecified severity (principal); I87.2 Venous insufficiency (chronic) (peripheral); I73.9 Peripheral vascular disease, unspecified; Z79.4 Long term (current) use of insulin; E11.40 Type 2 diabetes mellitus with diabetic neuropathy, unspecified; E11.65 Type 2 diabetes mellitus with hyperglycemia; Z89.419 Acquired absence of unspecified great toe; S97.111A Crushing injury of right great toe, initial encounter; W19.XXXA Unspecified fall, initial encounter | CPT/HCPCS: 11042 ==

== ENCOUNTER → 2023-11-01 11:06 | Outpatient (REF) | payer BC, SELFPAY | LOC: WOUND 11:06 | PROVIDERS: ATTENDING PHYSICIAN Surgery; FAMILY PHYSICIAN Family Medicine | DX: L97.829 Non-pressure chronic ulcer of other part of left lower leg with unspecified severity (principal); I73.9 Peripheral vascular disease, unspecified; I87.2 Venous insufficiency (chronic) (peripheral); E11.51 Type 2 diabetes mellitus with diabetic peripheral angiopathy without gangrene; E11.40 Type 2 diabetes mellitus with diabetic neuropathy, unspecified; E11.65 Type 2 diabetes mellitus with hyperglycemia; Z89.419 Acquired absence of unspecified great toe; Z79.01 Long term (current) use of anticoagulants; Z79.4 Long term (current) use of insulin; S98.111A Complete traumatic amputation of right great toe, initial encounter; X58.XXXA Exposure to other specified factors, initial encounter | CPT/HCPCS: 11042; 11045 ==

== ENCOUNTER → 2023-12-04 14:39 | Outpatient (REF) | payer BC, SELFPAY | LOC: MRI 14:39 | PROVIDERS: ATTENDING PHYSICIAN Surgery; FAMILY PHYSICIAN Family Medicine; REFERRING PHYSICIAN Physician Assistant Surgical | DX: M54.16 Radiculopathy, lumbar region (principal) | CPT/HCPCS: 72148; 93922; 93925 ==

== ENCOUNTER 2024-01-15 14:00 | Inpatient (IN) | payer BC, MEDICARE, SELFPAY ==
[2024-01-15] VITALS (11 sets, daily range): BP systolic 126–148; BP diastolic 64–97; BMI 36.3; BMI 34.7
--- NOTE | 2024-01-15 10:53 | ED.GENMED ---
History of Present Illness
General
Chief Complaint: Skin Problem
Source: patient
Exam Limitations: none
Time Seen by Provider: 01/15/24 10:32
History of Present Illness
History of Present Illness:
Okay 73-year-old male insulin-dependent diabetic on Eliquis presents with 2 days worth of worsening swelling to the left lower leg associated with blisters on the site of prior amputation of the large toe. He does note chills but denies any fevers
or sweats. He has neuropathy and has no pain. He has been seeing wound care for an abrasion on the left knee. NO chest pain/sob. No other complaints.
Past History
Past History
ED Past Medical History: HTN, Hypercholesterolemia, IDDM and Other (Right eye cataract scar)
ED Past Surgical History: None
Social History
Tobacco: Non-smoker
Alcohol: None
Personal: Single
Living: alone
Employment: Employed
Phy Exam
Physical Exam
Physical Exam:
General: well appearing male NAD
HEENT: nC/AT
Heart: RRR, no murmurs
Lungs; CTA bilaterally
Ext: erythema and swelling to LLE
Vascular: 2+DP pulse left foot
Skin: Erythema to left leg into the foot. There is a prior blister over the site of amputation of the large toe. The foot is erythematous and swollen
Course
Orders/Labs/Results
Orders:
Orders
01/15/24 10:42
CR Foot - Left Min 3 Views Urgent
Comment:
Reason For Exam: infection
01/15/24 10:54
Basic Metabolic Panel Urgent
Complete Blood Count/With Diff Urgent
Lactic Acid Q4H
Comment: CANCEL 2nd LACTIC ACID IF 1st LACTIC ACID IS LESS THAN 2
Abnormal Lab Results
01/15/24
10:54
WBC 12.1 H 10^3/uL
(4.8-10.8)
RBC 4.64 L 10^6/uL
(4.70-6.10)
Abs Immat Gran (auto) 0.3 H 10^3/uL
(0-0.05)
Absolute Neuts (auto) 9.6 H 10^3/uL
(1.4-6.5)
Absolute Monos (auto) 0.9 H 10^3/uL
(0.1-0.6)
Immature Gran % 2.2 H %
(0-0.5)
Neutrophils % 79.4 H %
(42.2-75.2)
Lymphocytes % 9.9 L %
(20.5-51.1)
Carbon Dioxide 19 L mmol/L
(22-30)
BUN 27 H mg/dl
(9-20)
Glucose 166 H mg/dl
(70-99)
Calcium 8.2 L mg/dl
(8.4-10.2)
01/15/24 10:54
01/15/24 10:54
Vital Signs
Initial and Last Documented VS:
Initial Vital Signs
Temp Pulse Resp BP Pulse Ox
99.0 F 63 19 134/97 96
01/15/24 09:48 01/15/24 09:48 01/15/24 09:48 01/15/24 09:48 01/15/24 09:48
Last Documented Vital Signs
Temp Pulse Resp BP Pulse Ox
98.9 F 82 22 135/76 97
01/15/24 11:03 01/15/24 11:03 01/15/24 11:03 01/15/24 12:02 01/15/24 12:02
MDM/Problems Addressed
Differential Diagnosis Includes:
Erythema and swelling to left lower leg and foot. Consider cellulitis. Unlikely to be DVT secondary to anticoagulated state. Will x-ray foot to screen for any sign of osteomyelitis. He is an insulin-dependent diabetic. Will check labs. Will
likely benefit from mission to hospital for IV antibiotics
*Critical Care Note
Total Time (30-74mins, 75-104mins- exclusive of procedures): Not Applicable
Update Note
Update Note:
This x-ray left foot concerning for osteomyelitis of the distal first metatarsal. Labs reviewed white count 12.1. Patient stable afebrile. Will admit to hospital for cellulitis and possible osteomyelitis of foot and leg.
ED Attending Note
-
Portions of this chart may have been created with voice recognition software.� Occasional wrong word or��sound alike� substitutions may have occurred due to the inherent limitations of voice recognition software.
Discharge Plan
Departure
Patient Disposition: Admit
Date of Disposition: 01/15/24
Time of Disposition: 12:46
Admit to: Telemetry
Presentation/result/management discussed w/ accepting MD/DO: Hospitalist
Discharge Problem:
Cellulitis
Prescriptions:
No Action
Centrum Silver 1 EACH tablet
1 tab PO DAILY
atorvastatin 20 MG tablet
20 mg PO DAILY
cyanocobalamin (vitamin B-12) 1,000 mcg Tablet
1,000 mcg PO DAILY
hydralazine 10 mg Tablet
10 mg PO TID
lisinopril 20 mg Tablet
20 mg PO DAILY
Jardiance 10 mg Tablet
10 mg PO DAILY
amlodipine 5 mg tablet
5 mg PO BID
insulin lispro [Humalog KwikPen Insulin] 100 unit/mL insulin pen
8 unit SC AC
insulin glargine [Lantus Solostar U-100 Insulin] 100 unit/mL (3 mL) insulin pen
25 unit SC HS
Eliquis DVT-PE Treat 30D Start 5 mg (74 tabs) tablets,dose pack
5 mg PO BID
Referrals:
Dean Aleman MD [Family Provider] -
Interventions
Interventions:
*Risk Screen - Suicide Last Done: 01/15/24 11:03
*General Assessment Last Done: 01/15/24 11:03
*Neglect/Abuse Screening Last Done: 01/15/24 11:03
ED- Fall Risk Assessment Last Done: 01/15/24 11:03
*ED COVID-19 Vaccine History Last Done: 01/15/24 11:03
ED-Skin Assessment Last Done: 01/15/24 11:03
Discharge Date and Time
Print Language: FILIPINO
[2024-01-15 11:14] LABS: Lactic Acid 1.8 mmol/L (0.7-2.0)
[2024-01-15 11:16] LABS: % Basophils 0.5 % (0-2); % Eosinophils 0.7 % (0-6); % Immature Granulocytes 2.2 % (0-0.5); % Lymphocytes 9.9 % (20.5-51.1); % Monocytes 7.3 % (1.7-9.3); % Neutrophils 79.4 % (42.2-75.2); Absolute Basophils 0.1 10^3/uL (0-0.2); Absolute Eosinophils 0.1 10^3/uL (0-0.7); Absolute Immature Granulocytes 0.3 10^3/uL (0-0.05); Absolute Lymphocytes 1.2 10^3/uL (1.2-3.4); Absolute Monocytes 0.9 10^3/uL (0.1-0.6); Absolute Neutrophils 9.6 10^3/uL (1.4-6.5); Hematocrit 41.7 % (39.0-52.0); Hemoglobin 13.9 g/dL (13.0-18.0); Mean Corp Hgb Conc. 33.3 g/dL (33.0-37.0); Mean Corpuscular Volume 89.9 fL (80.0-94.0); Mean Platelet Volume 9.8 fL (7.4-10.4); Nucleated Red Blood Cells % 0 % (-); Platelet Count 185 10^3/uL (130-400); Red Blood Cell Count 4.64 10^6/uL (4.70-6.10); Red Cell Dist. Width 14.3 % (11.5-14.5); White Blood Cell Count 12.1 10^3/uL (4.8-10.8)
[2024-01-15 11:36] LABS: Blood Urea Nitrogen 27 mg/dl (9-20); Calcium 8.2 mg/dl (8.4-10.2); Carbon Dioxide 19 mmol/L (22-30); Chloride 107 mmol/L (98-107); Estimated Creatinine Clearance 87 ml/min; Glucose 166 mg/dl (70-99); Sodium 135 mmol/L (135-145); eGFR > 60.00
--- NOTE | 2024-01-15 13:10 | HPS.HSE ---
Family Physician
-
Family Physician: Dean Aleman
Chief Complaint
-
left foot redness and swelling
History of Present Illness
The patient is a 73-year-old male with PMH significant for IDDM, PE in May, on Eliquis (last dose this am), peripheral neuropathy, who presents with 3-4 days (since Sunday) of worsening swelling/edema and redness, to the left lower leg ,
associated with blisters on the site of prior amputation of the large toe that are weeping. He had chills last week. He had epidural steroid injection last week. No fevers, no chills, no n/v/d. No pain due to neuropathy.. He has been seeing
wound care for an abrasion on the left knee. He sees Marketing Agent Dr. Hemphill as OP s/p b/l first toe amputations .
Medical History
Past Medical History
Past Medical History: Reports Other
Additional Past Medical History:
Essential Hypertension
Hyperlipidemia
Diabetes Mellitus, Insulin Dependence
Peripheral Neuropathy
Past Surgical History: Reports Other
Additional Past Surgical History:
Right Knee Replacement
Bilateral Great Toe Amputation
Left 1st Metatarsal Head Resection
Social History
Tobacco: Non-smoker
Alcohol: None
Drug: None
Employment: Employed ([email or web address])
Family History
Family History: Adopted
Allergies / Home Medications
Allergies reflects when Allergies were last updated in [facility].
Home Medications with original date entered in [facility]
Allergy/Medication List:
Allergies
Allergy/AdvReac Type Severity Reaction Status Date / Time
No Known Allergies Allergy Verified 01/15/24 09:52
Home Medications
atorvastatin 20 mg tablet 20 mg PO DAILY High cholesterol 04/11/19
cyanocobalamin (vitamin B-12) 1,000 mcg tablet 1,000 mcg PO DAILY Supplement 01/27/22
amlodipine 5 mg tablet 5 mg PO BID Blood Pressure 11/09/23
empagliflozin 10 mg tablet (Jardiance) 10 mg PO DAILY Diabetes 11/09/23
hydralazine 10 mg tablet 10 mg PO TID Blood Pressure 11/09/23
insulin glargine 100 unit/mL (3 mL) subcutaneous pen (Lantus Solostar U-100 Insulin) 26 unit SC HS Diabetes 11/09/23
insulin lispro 100 unit/mL subcutaneous pen (Humalog KwikPen (U-100) Insulin) 12 unit SC AC Diabetes 11/09/23
lisinopril 20 mg tablet 20 mg PO DAILY Blood Pressure 11/09/23
apixaban 5 mg tablet (Eliquis) 5 mg PO BID Blood Clot Prevention/Tx 01/15/24
Review of Systems
-
A 12 point ROS was completed and negative except as noted: Yes
Physical Exam
Vital Signs
Vital Signs
Temp Pulse Resp BP Pulse Ox
98.9 F 82 22 135/76 97
01/15/24 11:03 01/15/24 11:03 01/15/24 11:03 01/15/24 12:02 01/15/24 12:02
Physical Exam
General: Well Developed, Well Nourished, No Apparent Distress, Comfortable and Conversant
HEENT: NormoCephalic, Anicteric and Moist mucous membranes
Respiratory: Clear
Cardiac: S1/S2 and Regular Rhythm
GI: Soft, Non Tender and Non Distended
Musculoskeletal: No Clubbing, No Cyanosis and Edema, Left Lower Extremity (3+ edema LE)
Skin: Warm and Other (weeping, severe erythema up to mid calf and felix)
Neuro: AO x 3 and No Motor Deficits
Psych: Calm
Laboratory Results
-
01/15/24 10:54
01/15/24 10:54
Laboratory Results
Lactic Acid Cancelled 01/15/24 14:45
Total Bilirubin Cancelled 01/15/24 10:54
AST Cancelled 01/15/24 10:54
ALT Cancelled 01/15/24 10:54
Alkaline Phosphatase Cancelled 01/15/24 10:54
Impression/Plan
-
IMPRESSION:The patient is a 73-year-old male with PMH significant for IDDM, PE in May, on Eliquis (last dose this am), peripheral neuropathy, who presents with 3-4 days (since Sunday) of worsening swelling/edema and redness, to the left lower leg
, associated with blisters on the site of prior amputation of the large toe that are weeping. He had chills last week. He had epidural steroid injection last week. No fevers, no chills, no n/v/d. No pain due to neuropathy.. He has been seeing
wound care for an abrasion on the left knee. He sees Marketing Agent Dr. Hemphill as OP s/p b/l first toe amputations .
# LLE and foot cellulitis associated with left metatarsal osteomyelitis of remaining metatarsal s/p prior 1st toe amputation
X-ray report: Apparent abnormal osteolysis along the distal aspect of the remaining first metatarsal on lateral projection as above. While not well seen on the frontal and oblique projections, this is suspicious for osteomyelitis. As warranted,
could be further evaluated with follow-up MRI.
-blood cx, IV abx Vanc/Zosyn started
-Podiatry consultation appreciated
-rec is to continue Eliquis
-NPO p mn
Essential Hypertension
Hyperlipidemia
Diabetes Mellitus, Insulin Dependence
Peripheral Neuropathy
Right Knee Replacement
Bilateral Great Toe Amputation
Left 1st Metatarsal Head Resection
DVT proph-Eliquis
Full Code
[2024-01-15] MEDS: ZOSYN 100 IV (14:24)
[2024-01-15] MEDS: VANCOCIN 540 MG IV (14:51)
[2024-01-15 15:02] LABS: Potassium 4.1 mmol/L (3.5-5.1)
--- NOTE | 2024-01-15 17:00 | PTCARENOTE ---
Received pt from ER.Pt awake, alert and oriented x3. Pt c/o mild discomfort, in left foot, tolerable at this time. Pt VSS 98% on RA. NSR with PACs and PVCs on tele. Pts foot wrapped with dressing per contract implementation analyst request. Pt oriented to room,call
whatley within reach, plan of care continues.
--- NOTE | 2024-01-15 17:08 | PHA.VAN.IN ---
Assessment
- Assessment
Renal Function: Appears elevated from baseline (04/20/23 BASELINE SCR: 0.8)
Concomitant Antimicrobials: ZOSYN
- Previous Dosing Experience
Previous Regimen: 1250MG IV Q12H
Date of Regimen: 01/29/24
Provided Trough of: 9
Provided AUC of: 482
Patient's SCR is: Similar to previous dosing experience (01/29/24 SCR = 1.0)
Patient's weight is: Elevated compared to previous dosing experience (01/29/24 WT = 115.9 KG)
AUC Dosing Plan
- Dosing Variables
Dosing Weight (kg): 117.9
Dosing CrCl (ml/min): 87
Vd coefficient (L/kg): 0.6
- Empiric Dosing
Initial / Loading Dose: 2GM
Maintenance Regimen: 1250MG IV Q12H
Estimated AUC (mcg*h/mL): 488
Estimated Peak (mcg*h/mL): 29.4
Estimated Trough (mcg/ml): 13.1
Estimated Half Life (H): 9
Pharmacokinetics Vancomycin I
- -
Patient Age: 73
Patient Sex: Male
Vancomycin Day #: 1
Indication: Bone And Joint (OM; LLE CELLULITIS)
Requesting Provider: BORIS
Height / Weight:
Height 6 ft
Actual Weight 115.808 kg
Pertinent Past Medical History: IDDM; S/P AMPUTATION [L] FOOT 1ST TOE
- Vital Signs / Lab Results
Temp Pulse Resp BP Pulse Ox
98.8 F 66 18 144/88 98
01/15/24 16:58 01/15/24 16:58 01/15/24 16:58 01/15/24 16:58 01/15/24 16:58
Lab Results - Hematology
01/15/24
10:54
WBC 12.1 H
Lab Results - Chemistry
01/15/24
10:54
BUN 27 H
Creatinine 1.0
Estimated Creat Clear 87
Albumin Cancelled
01/15/24 01/15/24
10:54 14:45
Lactic Acid 1.8 Cancelled
[2024-01-15 17:21] LABS: Glucose - Point of Care 112 mg/dl (70-99)
[2024-01-15] MEDS: NOVOLOG FLEXPEN 10 UNITS SC (17:51)
[2024-01-15] MEDS: APRESOLINE 10 MG PO ×2 (17:51→22:21)
[2024-01-15] MEDS: NOVOLOG FLEXPEN-MODERATE RESISTANCE SC (17:52)
--- NOTE | 2024-01-15 18:53 | W.CS.POD ---
Consult Summary - Podiatry
-
The patient is a 73-year-old male known to myself for last 2 yrs, presented tot he hosp with LT foot blisters and redness, swelling. He had LT partial 1st ray amputation in Jan 2022 due to gangrenous changes and abscess. He healed well and did not
follow up regularly in 2023, but he saw me about 6wks ago and was doing well was going to get diabetic shoes with inserts but never got them. 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 He noticed blister 4 days ago and slowly
got worse , he got spinal steroid inj last wk for his spine, he denies any fever, chills today, he is in no acute distress, no CP or SOB
PMH significant for IDDM, PE in May, on Eliquis (last dose this am), peripheral neuropathy.
Exam : LT foot and lower leg with severe edema. Lt forefoot with erythema, edema and blisters around 1st ray amputation site and LT 2nd toe.
No gangrenous changes. no foul odor noted.
WBC count 12.1
Xrays showing osteolysis at distal 1st met resection site
A/p: Lt foot cellultis
LT 1st ray possible osteomyelitis.
Diabetic small vessel disease.
Plan : Cont IV abx
Pending MRi of LT foot, will see if any abscess or osteomyelitis.
Possibly need I & D with bone debridement after MRI and possibly correction Abx
Will request ID consult
Podiatry will follow.
[2024-01-15] MEDS: ELIQUIS 5 MG PO (20:32)
[2024-01-15] MEDS: ZOSYN 50 IV (20:32)
[2024-01-15] MEDS: NORVASC 5 MG PO (20:33)
[2024-01-15 21:49] LABS: Glucose - Point of Care 115 mg/dl (70-99)
[2024-01-15] MEDS: LANTUS 0.26 UNITS SC (22:23)
[2024-01-16] MEDS: TYLENOL 650 MG PO ×2 (01:15→19:30)
[2024-01-16] MEDS: ZOSYN 50 IV ×4 (02:09→20:46)
[2024-01-16 03:18] VITALS: BP 147/80
[2024-01-16] MEDS: VANCOCIN 275 MG IV ×2 (05:29→17:20)
[2024-01-16] MEDS: FLUSH (NSS) 1 FLUSH IV (05:30)
[2024-01-16 06:00] VITALS: BMI 34.8
[2024-01-16 06:42] VITALS: BP 158/79
[2024-01-16 07:24] LABS: Glucose - Point of Care 121 mg/dl (70-99)
[2024-01-16] MEDS: NOVOLOG FLEXPEN-MODERATE RESISTANCE SC ×2 (08:28→12:15)
[2024-01-16] MEDS: NOVOLOG FLEXPEN 10 UNITS SC (08:28)
[2024-01-16] MEDS: ELIQUIS 5 MG PO ×2 (08:29→20:47)
[2024-01-16] MEDS: ZESTRIL 20 MG PO (08:29)
[2024-01-16] MEDS: APRESOLINE 10 MG PO ×3 (08:29→23:30)
[2024-01-16] MEDS: LIPITOR 20 MG PO (08:29)
[2024-01-16] MEDS: NORVASC 5 MG PO ×2 (08:30→20:47)
[2024-01-16] MEDS: VITAMIN B-12 1000 MCG PO (08:30)
[2024-01-16] MEDS: FARXIGA 10 MG PO (08:30)
[2024-01-16 10:35] LABS: % Basophils 0.8 % (0-2); % Eosinophils 1.4 % (0-6); % Immature Granulocytes 3.6 % (0-0.5); % Lymphocytes 13.2 % (20.5-51.1); % Monocytes 6.4 % (1.7-9.3); % Neutrophils 74.6 % (42.2-75.2); Absolute Basophils 0.1 10^3/uL (0-0.2); Absolute Eosinophils 0.1 10^3/uL (0-0.7); Absolute Immature Granulocytes 0.4 10^3/uL (0-0.05); Absolute Lymphocytes 1.3 10^3/uL (1.2-3.4); Absolute Monocytes 0.6 10^3/uL (0.1-0.6); Absolute Neutrophils 7.2 10^3/uL (1.4-6.5); Hematocrit 44.3 % (39.0-52.0); Hemoglobin 14.8 g/dL (13.0-18.0); Mean Corp Hgb Conc. 33.4 g/dL (33.0-37.0); Mean Corpuscular Hgb 29.5 pg (27.0-31.0); Mean Corpuscular Volume 88.4 fL (80.0-94.0); Mean Platelet Volume 9.6 fL (7.4-10.4); Nucleated Red Blood Cells % 0 % (-); Platelet Count 216 10^3/uL (130-400); Red Blood Cell Count 5.01 10^6/uL (4.70-6.10); Red Cell Dist. Width 14.3 % (11.5-14.5); White Blood Cell Count 9.6 10^3/uL (4.8-10.8)
[2024-01-16 10:39] LABS: INR 1.28; PT 16.5 Sec (11.4-14.6)
--- NOTE | 2024-01-16 11:01 | W.PN.HOSP.TC ---
Today's Communication/Plan
-
US to rule our worsening DVT of left lower extremity
Reduce insulin due to low normal blood glucose
Assessment / Plan
Assessment / Plan
Physical Exam
-
General: Well Developed, No Apparent Distress, Comfortable and Obese
HEENT: Atraumatic, Moist Mucous Membranes and Other (right eye corneal opacity )
Respiratory: Clear to Auscultation
Cardiac: Regular Rhythm and S1/S2
GI: Soft, Nontender and Nondistended
Rectal: Negative Maroon Stools
Genito-urinary: No Costovertebral Tender
Musculoskeletal: No Cyanosis
Skin: Warm and Dry
Neuro: Oriented and Nonfocal/Grossly Intact; Negative Slurred Speech or Facial Droop
Hematologic / Lymphatic: No Lymphadenopathy
73-year-old male with PMH significant for IDDM, PE in May, on Eliquis peripheral neuropathy, who presents with 3-4 days (since Sunday) of worsening swelling/edema and redness, to the left lower leg , associated with blisters on the site of prior
amputation of the large toe that are weeping. He had chills last week. He had epidural steroid injection last week. No fevers, no chills, no n/v/d. No pain due to neuropathy.. He has been seeing wound care for an abrasion on the left knee. He
sees He[employer] Se[employer] Dr. Hemphill as OP s/p b/l first toe amputations .
# LLE and foot cellulitis associated
s/p previous Left 1st Metatarsal Head Resection
MRI rule out osteomyelitis
c/w IV Abx
WBC normalized.
blood culture is pending
No fevers
Pain control with Tylenol
Elevate the leg with rohan wrap/ compression dressing to decrease edema
Will do US to rule out further thrombosis, pt has hx of DVT in LLE
d/w podiatry
# Edema in Lower extremity
Check Pro-BNP
No hx of CHF
f/w US of LLE
# Essential Hypertension
better controlled
Changed lisinopril to 20 mg BID , added low dose oral Hydralazine
changed to Nifedipine 30 mg BID
#Hyperlipidemia
# Diabetes Mellitus, Insulin Dependence
seems to have low BS, will hold pre-meal for now
c/w iSS
reduce Lantus
# Peripheral diabetic Neuropathy
# Right Knee Replacement
Bilateral Great Toe Amputation
DVT proph-Eliquis
Full Code
Total time spent to see the patient on the floor, examine the patient, review data and lab results, discuss treatment plan with patient, nursing staff around 55 minutes.
Anticipated Discharge: > 48 hours
Subjective/Interval History
-
Date of Service: January 16, 2024
No sob
No chest pain
Objective Data
-
Labs:
Laboratory Results
01/16/24
10:17
WBC 9.6
Hgb 14.8
Hct 44.3
Plt Count 216
PT 16.5 H
INR 1.28
Sodium Pending
Potassium Pending
Chloride Pending
Carbon Dioxide Pending
BUN Pending
Creatinine Pending
Glucose Pending
Calcium Pending
Total Bilirubin Pending
AST Pending
ALT Pending
Alkaline Phosphatase Pending
Vital Signs:
Vital Signs
Temp Pulse Resp BP Pulse Ox
98.2 F 69 18 158/79 96
01/16/24 06:42 01/16/24 06:42 01/16/24 06:42 01/16/24 06:42 01/16/24 08:00
I&O
01/15/24 01/16/24 01/17/24
06:59 06:59 06:59
Intake Total 830 / 830
Output Total 1700 / 1700
Balance -870 / -870
[2024-01-16 11:13] LABS: ALT (SGPT) 27 U/L (0-50); AST (SGOT) 22 U/L (17-59); Albumin 2.9 g/dl (3.5-5.0); Alkaline Phosphatase 102 U/L (38-126); Blood Urea Nitrogen 20 mg/dl (9-20); Calcium 8.7 mg/dl (8.4-10.2); Carbon Dioxide 26 mmol/L (22-30); Chloride 102 mmol/L (98-107); Estimated Creatinine Clearance 88 ml/min; Glucose 113 mg/dl (70-99); Potassium 4.2 mmol/L (3.5-5.1); Sodium 138 mmol/L (135-145); Total Bilirubin 1.3 mg/dl (0.2-1.3); Total Protein 6.2 g/dl (6.3-8.2); eGFR > 60.00
--- NOTE | 2024-01-16 11:31 | CON.ID ---
Consultation
-
Date/Time Consultation Requested: 01/16/2024 0648
Date/Time Consultation Performed: 01/16/2024 1129
Requesting Provider: Dr. Marvin
Performing Provider: Dr. Godinez
Reason for Consultation: Left foot cellulitis
Chief Complaint / Past History
History of Present Illness
Benjamin Lora is a 73-year-old man being evaluated at the request of Dr. Marvin in regards to left foot cellulitis. History is obtained from chart review, along with patient interview.
According to the patient he was in his usual state of health until approximately 5 days prior to admission, when he noted that after work he ate some dinner and after sitting down developed chills. Next day, he noted some swelling and redness of
the left leg and because of that called out from work. On Sunday he was off from work, and noting ongoing discomfort of the left leg. Yesterday, he noted ongoing discomfort, but at this time and developed what appeared to be a blister at the site
of his prior left hallux amputation. The blister popped and he noted drainage of fluid. Because of his underlying comorbidities (DM) he sought further medical care here.
Workup in the emergency room revealed a leukocytosis. He has been started on empiric antibiotics. At this point in time he notes ongoing discomfort of the leg.
Past History
Additional Past Medical History:
HTN
Dyslipidemia
DM type II
Right eye cataract
Additional Past Surgical History:
Left hallux amputation
Allergy History:
No Known Allergies Allergy (Verified 01/15/24 09:52)
Medications Reviewed: Yes
Current Antibiotics:
Zosyn 3.375 g IV every 6 hours
Vancomycin (dosed per pharmacy)
Social History
Tobacco: Non-Smoker
Alcohol: None
Drug: None
Personal: Single
Living: Alone
Employment: Retired
Family History
Family History: Not Pertinent
Review of Systems
Vital Signs
Temp Pulse Resp BP Pulse Ox
98.2 F 69 18 158/79 96
01/16/24 06:42 01/16/24 06:42 01/16/24 06:42 01/16/24 06:42 01/16/24 08:00
Physical Exam
Physical Exam
Constitutional: No Acute Distress, Comfortable and Non-toxic
Eyes: No Conjunctival Hemorrhage and Other (Right cataract)
Oral: No Thrush
Cardiovascular: S1/S2; Negative S3/S4
Pulmonary: Non Labored
Gastrointestinal: Soft, Non Distended and Normal Bowel Sounds
Extremities: Edema (Left lower extremity) and Erythema (Left lower extremity)
Wound: Other (Left hallux amp site with dusky appearing tissue, possibly secondary to prior bullae. Minimal tenderness. No expressible purulence.)
Neurological: Awake and Alert
Psychological: Calm
Lab / Diagnostic Study Results
01/16/24 10:17
01/16/24 10:17
Abs Immat Gran (auto) 0.4 10^3/uL (0-0.05) H 01/16/24 10:17
Absolute Neuts (auto) 7.2 10^3/uL (1.4-6.5) H 01/16/24 10:17
Absolute Lymphs (auto) 1.3 10^3/uL (1.2-3.4) 01/16/24 10:17
Absolute Monos (auto) 0.6 10^3/uL (0.1-0.6) 01/16/24 10:17
Absolute Basos (auto) 0.1 10^3/uL (0-0.2) 01/16/24 10:17
Immature Gran % 3.6 % (0-0.5) H 01/16/24 10:17
Neutrophils % 74.6 % (42.2-75.2) 01/16/24 10:17
Lymphocytes % 13.2 % (20.5-51.1) L 12/11/24 10:17
Monocytes % 6.4 % (1.7-9.3) 01/16/24 10:17
Eosinophils % 1.4 % (0-6) 01/16/24 10:17
Basophils % 0.8 % (0-2) 01/16/24 10:17
PT 16.5 Sec (11.4-14.6) H 01/16/24 10:17
INR 1.28 01/16/24 10:17
Lactic Acid Cancelled 01/16/24 04:36
Microbiology Results
Micro:
01/15/24 17:45 MRSA Screen - Pending
Nose
01/15/24 14:23 Blood Culture - Pending
Blood/Venous
01/15/24 14:23 Blood Culture - Pending
Blood/Venous
Imaging:
01/16/2024 MRI left lower extremity: Generalized soft tissue edema. No focal fluid collection or abscess. No MR evidence of osteomyelitis or occult fracture. Plantar musculature with generalized diffuse intramuscular edema. The appearance is
nonspecific, and could suggest microvascular disease, myositis, inflammatory myopathy, overuse (delayed onset muscle soreness) or denervation changes.
LEFT Foot (01/16/2024)
Assessment / Plan
Left lower extremity cellulitis
Left foot cellulitis
Leukocytosis
HTN
Dyslipidemia
DM type II
Right eye cataract
Recommendations:
Continue with empiric vancomycin and Zosyn for now.
Monitor white count & temperature curve.
Monitor clinical appearance of foot for any worsening, which may require surgical intervention.
Continue with lower extremity elevation.
[2024-01-16 11:33] LABS: Glucose - Point of Care 95 mg/dl (70-99)
--- NOTE | 2024-01-16 11:39 | CM ---
Benjamin is a 73 year old male, admitted with primary dx of PE. He resides alone in a two story home with two entry steps.
DME in the home: rolling walker, cane (uses this mostly), walk in shower with a shower chair, shower rails, secondary rails on stairs, and outside rails entering into the home.
Benjamin advised he has no immediate family and his support systems consist of many friends that can help as needed. The patient has had [facility] in the past and will return home at discharge.
Plan: Discharge home with support of friends.
PCP: Dean Aleman.
Pharmacy: [facility].
[2024-01-16 11:42] VITALS: BP 152/82
[2024-01-16 12:10] LABS: Glycohemoglobin (HgbA1c) 8.7 % (4.0-5.6)
--- NOTE | 2024-01-16 12:38 | PHA.VAN.FU ---
Vancomycin Assessment / Plan
- Assessment
Renal Function: Stable
WBC's are: WNL
In the past 24 hrs, patient has been: Afebrile
Concomitant Antimicrobials: piperacillin-tazobactam
- Dosing Plan
Continue: vanc 1250mg q12h
- Monitoring Plan
No level(s) ordered at this time: consider level in the upcoming days
- Follow Up
Pharmacy will continue to follow.
Vancomycin Follow UP
- -
Patient Age: 73
Patient Sex: Male
Vancomycin Day #: 2
Indication: Bone And Joint (OM; LLE CELLULITIS)
Requesting Provider: Dr Nair
Height / Weight:
Height 6 ft
Actual Weight 116.233 kg
Pertinent Past Medical History: IDDM; S/P AMPUTATION [L] FOOT 1ST TOE
- Vital Signs / Lab Results
Temp Pulse Resp BP Pulse Ox
98.4 F 72 18 152/82 99
01/16/24 11:42 01/16/24 11:42 01/16/24 11:42 01/16/24 11:42 01/16/24 11:42
Lab Results - Hematology
01/15/24 01/16/24
10:54 10:17
WBC 12.1 H 9.6
Lab Results - Chemistry
01/15/24 01/16/24
10:54 10:17
BUN 27 H 20
Creatinine 1.0 1.0
Estimated Creat Clear 87 88
Albumin Cancelled 2.9 L
01/15/24 01/15/24 01/15/24
10:54 14:45 16:36
Lactic Acid 1.8 Cancelled Cancelled
01/15/24 01/16/24 01/16/24
20:36 00:36 04:36
Lactic Acid Cancelled Cancelled Cancelled
[2024-01-16] MEDS: NOVOLOG FLEXPEN SC (13:20)
--- NOTE | 2024-01-16 14:17 | WOUNDNOTE ---
R 2ND TOE (DORSAL)
--- NOTE | 2024-01-16 14:17 | WOUNDNOTE ---
L FOOT (distal)/2ND TOE
--- NOTE | 2024-01-16 14:20 | WOUNDNOTE ---
L 3RD,5TH TOES (LATERAL)
--- NOTE | 2024-01-16 14:23 | WOUNDNOTE ---
[facility] RN note: Patient admitted with L foot cellulitis, blisters. Patient lives at home. He has surgical shoes and New Balance sneakers at home.
See H&P for complete history.
PMH: IDDM, PE (Eliquis), neuropathy, bilateral great toe amp, L 1st MTH resection, HTN, R knee replacement.
Wound Location and type/assessment: Patient admitted with: Ecchymotic blister at L great toe amp site, L 2nd toe purple ecchymotic broken blister, R dorsal 2nd toe scabbed ulcer, L knee and L skin dry scab. Moderate serous drainage from L foot.
Pedal pulses heard via portable Doppler.
Appetite: good.
Pressure redistribution devices in place: [employer] Accumax. Patient moves self in bed.
Plan: L foot dressing changed. Dr. Hemphill requested adaptic and dry gauze dressing daily, bilateral knee high Madhu with Tubigrip on top; remove q hs. Heels off bed with pillows. Discussed with ELENA Reinoso.
Care plan to be updated and will follow as needed. Instructed patient wound care and compression. Patient followed by podiatry and ID. Will follow peripherally as needed.
[2024-01-16 15:20] VITALS: BP 145/71
--- NOTE | 2024-01-16 15:23 | WOUNDNOTE ---
[facility] RN note: Confirmed R 2nd toe local care with Dr. Hemphill. Asked acetone button paster if any weight bear restrictions; Dr. Hemphill stated WBAT, no restrictions. Dr. Hemphill stated vascular to see patient.
[2024-01-16 15:44] LABS: NT-proBNP 1480 pg/ml
[2024-01-16 16:54] LABS: Glucose - Point of Care 162 mg/dl (70-99)
[2024-01-16] MEDS: NOVOLOG FLEXPEN-MODERATE RESISTANCE 1 UNITS SC (17:21)
--- NOTE | 2024-01-16 17:35 | W.PN.POD ---
Today's Communication
Today's Communication
Requested vascular surgery consult
No surgical intervention by podiatry
Assessment / Plan
-
A/P : Lt foot lower extremity cellultis
LT foot degloving blisters
Diabetic small vessel disease.
Plan : Cont IV abx per ID
Reviewed MRi of LT foot,Generalized soft tissue edema. No focal fluid collection or abscess. No MR evidence of osteomyelitis or occult fracture.
Requested vascular evaluation.
PABLITO'S from 12/04/2023 with diminished toe pressures and monophasic flow in DP and PT
will cont to monitor the Lt foot for any worsening symptoms, Suspect diabetic small vessel disease with delayed healing, limb loss risk is high.
Discussed with patient multiple times about the importance of compressions to lower legs and accommodative shoes.
Will cont local wound care and rohan wrap compressions with tube precision machinist to b/l lower legs
Appreciate ID consult
Podiatry will follow.
Subjective
Chief Complaint
Lt foot ulcer, lt leg cellulitis
Subjective
Pt seen at bedside, doing well, no new complaints, no pain in LT foot. no fever, chills.
Slightly improved edema and erythema to Left L/E
Objective
Temp Pulse Resp BP Pulse Ox
98.1 F 56 18 145/71 96
01/16/24 15:20 01/16/24 15:20 01/16/24 15:20 01/16/24 15:20 01/16/24 15:20
01/16/24 10:17
01/16/24 10:17
Vital Signs and Lab results were reviewed.
LT foot and lower leg with severe edema. Lt forefoot with improving erythema, edema and blisters around 1st ray amputation site and LT 2nd toe.
No gangrenous changes. no foul odor noted, No signs of any abscess or crepitus felt.
[2024-01-16 19:42] VITALS: BP 105/73
[2024-01-16 21:18] LABS: Glucose - Point of Care 155 mg/dl (70-99)
[2024-01-16] MEDS: LANTUS 0.2 UNITS SC (21:33)
[2024-01-16] MEDS: ULTRAM 50 MG PO (21:39)
[2024-01-16 23:57] VITALS: BP 137/74
[2024-01-17] VITALS (15 sets, daily range): BP systolic 16–151; BP diastolic 69–87; BMI 34.4
[2024-01-17] MEDS: ZOSYN 50 IV ×4 (01:42→20:44)
--- NOTE | 2024-01-17 05:00 | DOWNTIME ---
There was a [employer] Client Amusement Equipment Operator Downtime on 01/17/2024 from 0200 to 01/17/2024 at 0325 . Downtime documentation of patient's care, including medication administrations, has been reconciled in the electronic record per guidelines. Refer to the
patient's paper chart under the miscellaneous tab to see printed paper medication records and downtime forms.
[2024-01-17] MEDS: VANCOCIN 275 MG IV ×2 (05:26→18:03)
[2024-01-17 08:25] LABS: Glucose - Point of Care 110 mg/dl (70-99)
[2024-01-17] MEDS: TYLENOL 650 MG PO ×2 (08:44→20:43)
--- NOTE | 2024-01-17 08:47 | PHA.VAN.FU ---
Vancomycin Assessment / Plan
- Assessment
Renal Function: No New Labs Today
In the past 24 hrs, patient has been: Afebrile
Concomitant Antimicrobials: piperacillin-tazobatam
- Dosing Plan
Continue: vanc 1250 mg q12h
- Monitoring Plan
Peak Level: 01/16 2100
Trough Level: 01/17 0530
Monitoring Comments: SCr ordered per protocol for 01/17 am
- Follow Up
Pharmacy will continue to follow.
Vancomycin Follow UP
- -
Patient Age: 73
Patient Sex: Male
Vancomycin Day #: 3
Indication: [facility] (OM; LLE CELLULITIS)
Requesting Provider: Dr Nair/ Dr Godinez
Height / Weight:
Height 6 ft
Actual Weight 114.901 kg
Pertinent Past Medical History: IDDM; S/P AMPUTATION [L] FOOT 1ST TOE
- Vital Signs / Lab Results
Temp Pulse Resp BP Pulse Ox
98.3 F 61 18 150/78 97
01/17/24 03:44 01/17/24 03:44 01/17/24 03:44 01/17/24 03:44 01/17/24 03:44
Lab Results - Hematology
01/15/24 01/16/24
10:54 10:17
WBC 12.1 H 9.6
Lab Results - Chemistry
01/15/24 01/16/24
10:54 10:17
BUN 27 H 20
Creatinine 1.0 1.0
Estimated Creat Clear 87 88
Albumin Cancelled 2.9 L
01/15/24 01/15/24 01/15/24
10:54 14:45 16:36
Lactic Acid 1.8 Cancelled Cancelled
01/15/24 01/16/24 01/16/24
20:36 00:36 04:36
Lactic Acid Cancelled Cancelled Cancelled
Microbiology Results
01/15/24 17:45 MRSA Screen - Final
Nose Staph aureus MRSA
01/15/24 14:23 Blood Culture - Preliminary
Blood/Venous No Growth in 24 hours- Final report to follow
01/15/24 14:23 Blood Culture - Preliminary
Blood/Venous No Growth in 24 hours- Final report to follow
[2024-01-17] MEDS: NORVASC 5 MG PO ×2 (08:48→20:43)
[2024-01-17] MEDS: ZESTRIL 20 MG PO (08:49)
[2024-01-17] MEDS: LASIX 40 MG IV (08:49)
[2024-01-17] MEDS: VITAMIN B-12 1000 MCG PO (08:49)
[2024-01-17] MEDS: LIPITOR 20 MG PO (08:49)
[2024-01-17] MEDS: APRESOLINE 10 MG PO ×3 (08:49→22:11)
[2024-01-17] MEDS: FARXIGA 10 MG PO (08:49)
[2024-01-17] MEDS: BACTROBAN 2% OINTMENT 1 APPLIC TOPICAL (08:50)
[2024-01-17] MEDS: NOVOLOG FLEXPEN-MODERATE RESISTANCE SC ×3 (08:50→17:26)
[2024-01-17] MEDS: ELIQUIS PO (09:03)
--- NOTE | 2024-01-17 10:08 | W.PN.UPDATE ---
Update Note
Progress Note Update
Seen and examined with MERCED Hedrick and MERCED Ramos. Full consultation to follow. 73-year-old diabetic male with left first toe wound, asked to evaluate for PAD. Patient known to me from prior hospital visit in 2019 and subsequent outpatient follow-up.
Last seen in 2020. At that time, had palpable PT pulses, felt to have distal diabetic small vessel disease. Had healed wounds. Prior right toe amputation successfully healed. On the left side first toe amputation as well that it healed. But now
has a wound that is at the site of his first toe amputation as well as second toe.
On exam/he is awake and alert. Head is normocephalic and atraumatic. Eyes are anicteric. Neck is soft without jugular venous distention. 2+ upper extremity radial pulses palpable bilaterally. Breathing is unlabored. Abdomen is soft. Lower
extremity on the right side with 2+ femoral, popliteal, PT pulses easily palpable. On the left side 2+ femoral, 1+ popliteal, nonpalpable distally. Feet are both warm. Left foot ulcerations as noted in full consultation note.
Recent noninvasive studies reviewed. Left-sided PABLITO 0.8 range with left SFA stenosis and monophasic waveforms beyond the stenosis. Right-sided PABLITO within normal limits though he does likely have a lesser SFA stenosis.
Plan/ PAD, chronic limb threatening ischemia.
� Recommended angiography. Discussed extensively with the patient my recommendation based on her wound, ultrasound findings, pulse exam. Discussed procedure at length. Discussed technical aspects. Discussed potential outcomes/scenarios to be: #1
successful endovascular revascularization, #2 need for staged surgical bypass, #3 unreconstructable small vessel disease. Discussed procedural risks including but not limited to bleeding, arterial injury/worsened or acute limb ischemia, renal
failure. He understands all these things and wishes to proceed. Plan LEFT lower extremity arteriogram, possible angioplasty/stent today.
--- NOTE | 2024-01-17 10:14 | CON.VAS ---
Consultation
Consultation Request
Performing Provider: Oh
Reason for Consultation: PAD eval, nonhealing wound
Medical History
-
Chief Complaint: Nonhealing wound left foot
History of Present Illness:
73-year-old diabetic male with left first toe wound, asked to evaluate for PAD. Patient known to me from prior hospital visit in 2019 and subsequent outpatient follow-up. Last seen in 2020. At that time, had palpable PT pulses, felt to have
distal diabetic small vessel disease. Had healed wounds. Prior right toe amputation successfully healed. On the left side first toe amputation as well that it healed. But now has a wound that is at the site of his first toe amputation as well as
second toe.
On exam/he is awake and alert. Head is normocephalic and atraumatic. Eyes are anicteric. Neck is soft without jugular venous distention. 2+ upper extremity radial pulses palpable bilaterally. Breathing is unlabored. Abdomen is soft. Lower
extremity on the right side with 2+ femoral, popliteal, PT pulses easily palpable. On the left side 2+ femoral, 1+ popliteal, nonpalpable distally. Feet are both warm. Left foot ulcerations as noted in full consultation note.
Recent noninvasive studies reviewed. Left-sided PABLITO 0.8 range with left SFA stenosis and monophasic waveforms beyond the stenosis. Right-sided PABLITO within normal limits though he does likely have a lesser SFA stenosis.
Left foot
Past Medical History
Past Medical History: HTN, IDDM and Other (Hyperlipidemia, peripheral neuropathy, PAD)
Past Surgical History: Orthopedic and Other (Bilateral Great Toe Amputation, Left 1st Metatarsal Head Resection)
Social History
Tobacco: Non-Smoker
Alcohol: None
Drug: None
Employment: Employed
Family History
Family History: Adopted
Allergies / Home Medications
Allergy/AdvReac Type Severity Reaction Status Date / Time
No Known Allergies Allergy Verified 01/15/24 09:52
�Medication �Instructions �Recorded �Confirmed �Type
atorvastatin 20 mg tablet 20 mg PO DAILY High cholesterol 04/11/19 01/15/24 History
cyanocobalamin (vitamin B-12) 1,000 mcg PO DAILY Supplement 01/27/22 01/15/24 History
1,000 mcg tablet
amlodipine 5 mg tablet 5 mg PO BID Blood Pressure 11/09/23 01/15/24 History
empagliflozin 10 mg tablet 10 mg PO DAILY Diabetes 11/09/23 01/15/24 History
(Jardiance)
hydralazine 10 mg tablet 10 mg PO TID Blood Pressure 11/09/23 01/15/24 History
insulin glargine 100 unit/mL (3 26 unit SC HS Diabetes 11/09/23 01/15/24 History
mL) subcutaneous pen (Lantus
Solostar U-100 Insulin)
insulin lispro 100 unit/mL 12 unit SC AC Diabetes 11/09/23 01/15/24 History
subcutaneous pen (Humalog KwikPen
(U-100) Insulin)
lisinopril 20 mg tablet 20 mg PO DAILY Blood Pressure 11/09/23 01/15/24 History
apixaban 5 mg tablet (Eliquis) 5 mg PO BID Blood Clot 01/15/24 01/15/24 History
Prevention/Tx
Review of Systems
-
History Source: Patient
All other systems: Negative unless noted
Constitutional: Reports Fever, Fatigue and Chills
EENT: Reports No Symptoms
Respiratory: Reports No Symptoms
Cardiac: Reports No Symptoms
Vascular: Denies Leg Pain / Claudication
Abdomen/GI: Reports No Symptoms
: Reports No Symptoms
Musculoskeletal: Reports Muscle Stiffness and Edema
Skin: Reports Other (Left foot wound)
Neurological: Reports No Symptoms
Physical Exam
Vital Signs
Temp Pulse Resp BP Pulse Ox
98.1 F 64 20 151/87 98
01/17/24 07:02 01/17/24 08:48 01/17/24 07:02 01/17/24 08:48 01/17/24 07:02
Lab Results
01/16/24 10:17
01/16/24 10:17
Ozk-H-Gbpxbtxpmht Pept 1480 pg/ml 01/16/24 10:12
Physical Exam
General: No Apparent Distress
HEENT: Normocephalic and Atraumatic
Respiratory: Non Labored Respirations
Cardiac: Negative JVD
GI: Soft, Non Tender and Non Distended
Musculoskeletal: No Clubbing, No Cyanosis and Edema
Skin: Warm and Other (See image above)
Neuro: Awake, Alert and Oriented
Psych: Calm
Pulses: Bilateral Femoral: +2, Left Dorsalis Pedis: +1 and Right Posterior Tibial: +1
Assessment / Plan
-
Plan/ PAD, chronic limb threatening ischemia.
� Recommended angiography. Discussed extensively with the patient my recommendation based on her wound, ultrasound findings, pulse exam. Discussed procedure at length. Discussed technical aspects. Discussed potential outcomes/scenarios to be: #1
successful endovascular revascularization, #2 need for staged surgical bypass, #3 unreconstructable small vessel disease. Discussed procedural risks including but not limited to bleeding, arterial injury/worsened or acute limb ischemia, renal
failure. He understands all these things and wishes to proceed. Plan LEFT lower extremity arteriogram, possible angioplasty/stent today.
Data Reviewed
-
Ultrasound: Discussed with Patient
Labs: Labs Reviewed by me
--- NOTE | 2024-01-17 11:26 | W.PN.HOSP.TC ---
Today's Communication/Plan
-
.
Assessment / Plan
Assessment / Plan
Physical Exam
-
General: Well Developed, No Apparent Distress, Comfortable and Obese
HEENT: Atraumatic, Moist Mucous Membranes and Other (right eye corneal opacity )
Respiratory: Clear to Auscultation
Cardiac: Regular Rhythm and S1/S2
GI: Soft, Nontender and Nondistended
Rectal: Negative Maroon Stools
Genito-urinary: No Costovertebral Tender
Musculoskeletal: No Cyanosis
Skin: Warm and Dry
Neuro: Oriented and Nonfocal/Grossly Intact; Negative Slurred Speech or Facial Droop
Hematologic / Lymphatic: No Lymphadenopathy
73-year-old male with PMH significant for IDDM, PE in May, on Eliquis peripheral neuropathy, who presents with 3-4 days (since Sunday) of worsening swelling/edema and redness, to the left lower leg , associated with blisters on the site of prior
amputation of the large toe that are weeping. He had chills last week. He had epidural steroid injection last week. No fevers, no chills, no n/v/d. No pain due to neuropathy.. He has been seeing wound care for an abrasion on the left knee. He
sees Real Estate Closing Coordinator Dr. Hemphill as OP s/p b/l first toe amputations .
# chronic left lower extremity threatening ischemia
Plan for LEFT lower extremity arteriogram, possible angioplasty/stent today per vascular.
NPO for now
Holding Eliquis
# LLE and foot cellulitis associated
s/p previous Left 1st Metatarsal Head Resection
MRI rule out osteomyelitis
c/w IV Abx
WBC normalized.
blood culture is pending
No fevers
Pain control with Tylenol
Elevate the leg with rohan wrap/ compression dressing to decrease edema
d/w podiatry
# Edema in Lower extremity
Check Pro-BNP
No hx of CHF
f/w US of LLE
Vascular planning arteriogram
IV Lasix.
# Essential Hypertension
On amlodipine, hydralazine, Lisinopril, Lasix.
#Hyperlipidemia
# Diabetes Mellitus, Insulin Dependence
seems to have low BS, will hold pre-meal for now
c/w iSS
reduce Lantus
# Peripheral diabetic Neuropathy
# Right Knee Replacement
Bilateral Great Toe Amputation
DVT proph-Eliquis
Full Code
Total time spent to see the patient on the floor, examine the patient, review data and lab results, discuss treatment plan with patient, nursing staff around 55 minutes.
Anticipated Discharge: > 48 hours
Subjective/Interval History
-
Date of Service: January 17, 2024
No chest pain
No sob
Objective Data
-
Vital Signs:
Vital Signs
Temp Pulse Resp BP Pulse Ox
98.1 F 64 20 151/87 98
01/17/24 07:02 01/17/24 08:48 01/17/24 07:02 01/17/24 08:48 01/17/24 07:02
I&O
01/16/24 01/17/24 01/18/24
06:59 06:59 06:59
Intake Total 830 / 830 0 / 0
Output Total 1700 / 1700 825 / 825
Balance -870 / -870 -825 / -825
--- NOTE | 2024-01-17 12:03 | W.SUR.PREOP ---
Pre-Operative Surgical Note
-
I have examined this patient prior to the performance of the scheduled procedure.
The patient's condition is unchanged from the time of the current History and
Physical and the patient is able to undergo the scheduled procedure.
[2024-01-17 13:39] LABS: Glucose - Point of Care 74 mg/dl (70-99)
--- NOTE | 2024-01-17 13:43 | W.SUR.POST ---
Surgical Immediate Post Op
Note
Pre Op Diagnosis: PAD
Post Op Diagnosis: Same
Procedure Performed: Left lower extremity arteriogram, left SFA balloon angioplasty and stent placement, left PT long segment balloon angioplasty
Primary Surgeon: Oh
Anesthesia: Local and sedation
Estimated Blood Loss: 2 cc
Fluids: See anesthesia flowsheet
Drains/Shunts: None
Specimens/Cultures: None
Doppler/Duplex/Angio (Y/N): Y
Complications: None
Operative Findings: Successful endovascular intervention
[2024-01-17 14:06] LABS: Glucose - Point of Care 75 mg/dl (70-99)
--- NOTE | 2024-01-17 14:14 | OR.RPT ---
Operative Report
Operative Report
PROCEDURE DATE: 01/17/2024
Preoperative diagnosis: Chronic limb threatening ischemia left lower extremity
Postoperative diagnosis: Same
Procedure:
1. Duplex assisted right common femoral artery cannulation.
2. Aortogram and pelvic angiogram.
3. Left lower extremity arteriogram with third order vessel catheterization of left posterior tibial artery via right common femoral artery puncture.
4. Balloon angioplasty and stent placement (Cook Zilver PTX 6 mm x 4 cm) left superficial femoral artery.
5. Long segment balloon angioplasty of posterior tibial artery with 3 mm x 20 cm angioplasty balloon.
6. Right femoral angiogram and Bruce Pro-glide percutaneous suture closure.
7. Supervision and interpretation.
Surgeon: Oh
Trauma Program Manager: None
Complications: None
Anesthesia: Local, sedation
Fluoroscopy:
9.6 min
13.6 mGy
35.47 Gy.cm2
Indications for procedure:
Left lower extremity foot wounds with concern for ischemic nonhealing. Risk/benefits/alternatives of angiography fully discussed. Patient understood all wished to proceed.
Description of procedure:
Patient was identified, brought to the operating room. Placed on the table in the supine position. After the adequate administration of anesthesia, the patient was prepped and draped in the standard surgical fashion. A standard preoperative
timeout was undertaken and everybody was in agreement with the plan.
The right common femoral artery was accessed with a micropuncture kit under direct duplex ultrasound guidance. A 5 [place] sheath was then advanced over a 0.035 inch wire, and a corley's hook catheter was advanced into the abdominal aorta.
Aortogram and pelvic angiogram was obtained. Findings as follows:
Infrarenal aorta: Patent distal infrarenal aorta with no significant stenosis.
Right common iliac artery: Patent with no significant stenosis.
Right external iliac artery: Patent with no significant stenosis.
Left common iliac artery: Patent with no significant stenosis.
Left external iliac artery: Patent with no significant stenosis.
Using a floppy angled hydrophilic wire, the left common femoral artery was cannulated and the catheter was advanced. Left lower extremity arteriogram was obtained. Findings as follows:
Common femoral artery: Patent with no significant stenosis.
Profunda femoris artery: Patent with no significant stenosis though distal filling was relatively poor, may have occluded in its distal portion.
Superficial femoral artery: Patent with moderate to severe stenosis focally likely approximately 70% or greater approximately 8 cm beyond the origin. Otherwise some luminal irregularities in the more distal superficial femoral artery but no
significant stenosis.
Popliteal artery: Mild luminal irregularities but no definitive stenosis.
Anterior tibial artery: Patent with no significant stenosis. Cross the ankle to become the dorsalis pedis. Relatively small as the dorsalis pedis and poor filling into the arch of the dorsalis pedis (diseased dorsalis pedis artery).
Tibial peroneal trunk: Patent with no significant stenosis.
Peroneal artery: Patent with no significant stenosis, but relatively poor distal collateralization.
Posterior tibial artery: Occluded for about 2 cm proximally. Then reconstituted but diseased/stenotic for about two thirds length. The distal third of the posterior tibial artery reconstitutes via more normal size and gave rise to plantar artery
on the foot.
At this point, I selectively cannulated the superficial femoral artery under roadmap assisted guidance. The patient was given 8000 units of intravenous heparin. I was able to traverse the area of stenosis with a flopping of hydrophilic wire and
then advanced my catheter. I stayed in the true lumen. I then exchanged for a Storq wire and an up and over 6 [place] sheath. I elected to primarily stented the stenosis at this point. I used a Cook Zilver 6 mm x 4 cm self-expanding drug eluting
stent. This was deployed without any difficulty. I post angioplastied with a 6 mm angioplasty balloon. Completion angiogram demonstrated excellent result with no residual stenosis. Now, using a flopping of hydrophilic wire and a CXI catheter
under roadmap assisted guidance I was able to cannulate the posterior tibial artery. It was slightly difficult to cannulate the occluded segment proximally, but was finally able to get through it. I was able to guide my wire into the distal
posterior tibial artery at the ankle. I then advanced the CXI catheter. I exchanged for a 0.014 inch CAN WASHER wire and then performed balloon angioplasty with a 3 mm x 20 cm angioplasty balloon to angioplasty the entire stenotic segment as well as the
proximal occlusion. Completion angiogram now demonstrated good result with flow that rival the flow in the anterior tibial system. There was some mild residual stenosis however I did not wish to go up with a larger balloon. At this point I was
fairly satisfied. The sheath was withdrawn over a 0.035 inch wire to the right external iliac artery. Right femoral angiogram demonstrated puncture right common femoral artery. Therefore used a I and love and you Pro-glide percutaneous suture to suture close
the right common femoral artery puncture site. Manual pressure was also applied and protamine was given to reverse the heparin. Hemostasis was fully achieved. The patient tolerated the procedure well. Upon completion he had a palpable left 1+ DP
pulse, and possibly a week PT pulse.
The patient tolerated procedure well.
--- NOTE | 2024-01-17 15:02 | W.PN.UPDATE ---
Update Note
Progress Note Update
Patient is in OR, getting angiogram with possible stent by Dr. Casiano,
Will see him tomorrow
--- NOTE | 2024-01-17 15:57 | PTCARENOTE ---
pt back from cat lab s/p Aortogram and pelvic angiogram. pt is AAO*3, Vss, room air. pt c/o 10 pain at this time. call whatley within the reach. plan of care ongoing.
[2024-01-17] MEDS: LOW STRENGTH ASPIRIN 81 MG PO (16:03)
[2024-01-17] MEDS: NSS 1000 IV (16:04)
[2024-01-17] MEDS: DILAUDID 0.5 MG IV (16:12)
--- NOTE | 2024-01-17 16:14 | W.PN.ID1 ---
Date of Service
Date of Service: January 17, 2024
Today's Communication
Continue antibiotics.
Assessment / Plan
Left lower extremity cellulitis
Left foot cellulitis
Leukocytosis
HTN
Dyslipidemia
DM type II
Right eye cataract
Recommendations:
Continue with empiric vancomycin and Zosyn for now.
Monitor white count & temperature curve.
Monitor clinical appearance of foot for any worsening, which may require surgical intervention.
Continue with lower extremity elevation.
����������������������������������������������������������
Chief Complaint
-: Cellulitis
Subjective / Review of Systems
Patient seen and examined. Status post B/L lower extremity angiogram. Underwent balloon angioplasty and stenting.
Review of Systems: No Fever and No Chills
Vital Signs / Physical Exam
Vital Signs
Vital Signs
Temp Pulse Resp BP Pulse Ox
97.4 F 63 20 123/73 98
01/17/24 15:45 01/17/24 16:02 01/17/24 15:45 01/17/24 16:02 01/17/24 15:45
Physical Exam
Constitutional: No Acute Distress, Comfortable and Non-toxic
Eyes: Sclera Anicteric
Cardiovascular: S1/S2; Negative S3/S4
Pulmonary: Non Labored
Gastrointestinal: Soft and Non Distended
Wound: Other (Left foot dressed. No erythema extending up past ankle)
Neurological: Awake and Alert
Psychological: Calm
Objective Data
Lab Data
Lab Results
01/16/24 10:17
01/16/24 10:17
PT 16.5 Sec (11.4-14.6) H 01/16/24 10:17
INR 1.28 01/16/24 10:17
Estimated Creat Clear 88 ml/min 01/16/24 10:17
Lactic Acid Cancelled 01/16/24 04:36
Total Bilirubin 1.3 mg/dl (0.2-1.3) 01/16/24 10:17
AST 22 U/L (17-59) 01/16/24 10:17
ALT 27 U/L (0-50) 01/16/24 10:17
Alkaline Phosphatase 102 U/L (38-126) 01/16/24 10:17
Most recent labs reviewed.
Micro Results:
01/15/24 14:23 Blood Culture - Preliminary
Blood/Venous No Growth in 48 hours- Final report to follow
01/15/24 14:23 Blood Culture - Preliminary
Blood/Venous No Growth in 48 hours- Final report to follow
01/15/24 17:45 MRSA Screen - Final
Nose Staph aureus MRSA
Imaging:
01/16/2024 MRI left lower extremity: Generalized soft tissue edema. No focal fluid collection or abscess. No MR evidence of osteomyelitis or occult fracture. Plantar musculature with generalized diffuse intramuscular edema. The appearance is
nonspecific, and could suggest microvascular disease, myositis, inflammatory myopathy, overuse (delayed onset muscle soreness) or denervation changes.
[2024-01-17 17:05] LABS: Glucose - Point of Care 66 mg/dl (70-99)
[2024-01-17 17:59] LABS: Glucose - Point of Care 95 mg/dl (70-99)
[2024-01-17 20:34] LABS: Glucose - Point of Care 164 mg/dl (70-99)
[2024-01-17 21:30] LABS: Vancomycin Peak 23.7 ug/ml (18-26)
[2024-01-17 22:08] LABS: Glucose - Point of Care 166 mg/dl (70-99)
[2024-01-17] MEDS: LANTUS 0.2 UNITS SC (22:11)
[2024-01-18] MEDS: ZOSYN 50 IV ×4 (01:11→20:55)
[2024-01-18 03:10] VITALS: BP 147/75
[2024-01-18 04:55] LABS: Glucose - Point of Care 110 mg/dl (70-99)
[2024-01-18] MEDS: VANCOCIN IV (05:03)
[2024-01-18 06:00] VITALS: BMI 33.7
[2024-01-18] MEDS: VANCOCIN 275 MG IV (06:43)
[2024-01-18 06:51] LABS: Blood Urea Nitrogen 18 mg/dl (9-20); Calcium 8.1 mg/dl (8.4-10.2); Carbon Dioxide 25 mmol/L (22-30); Chloride 104 mmol/L (98-107); Estimated Creatinine Clearance 96 ml/min; Glucose 124 mg/dl (70-99); Hematocrit 40.9 % (39.0-52.0); Hemoglobin 13.5 g/dL (13.0-18.0); Mean Corpuscular Hgb 29.5 pg (27.0-31.0); Mean Corpuscular Volume 89.5 fL (80.0-94.0); Mean Platelet Volume 9.4 fL (7.4-10.4); Platelet Count 208 10^3/uL (130-400); Potassium 4.2 mmol/L (3.5-5.1); Red Blood Cell Count 4.57 10^6/uL (4.70-6.10); Sodium 135 mmol/L (135-145); White Blood Cell Count 8.8 10^3/uL (4.8-10.8); eGFR > 60.00
[2024-01-18 07:02] LABS: Vancomycin Trough 18.3 ug/ml (5-20)
[2024-01-18 07:22] LABS: Glucose - Point of Care 105 mg/dl (70-99)
[2024-01-18 07:30] VITALS: BP 160/80
--- NOTE | 2024-01-18 08:13 | W.PN.ID1 ---
Date of Service
Date of Service: January 18, 2024
Today's Communication
Continue antibiotics.
Assessment / Plan
Left lower extremity cellulitis
Left foot cellulitis
Leukocytosis; improved
HTN
Dyslipidemia
DM type II
Right eye cataract
Recommendations:
Continue with empiric vancomycin and Zosyn for today
Monitor white count & temperature curve.
Monitor clinical appearance of foot for any worsening, which may require surgical intervention.
Continue with lower extremity elevation.
����������������������������������������������������������
Chief Complaint
-: Cellulitis
Subjective / Review of Systems
Patient seen and examined. No significant issues overnight.
Review of Systems: No Fever and No Chills
Vital Signs / Physical Exam
Vital Signs
Vital Signs
Temp Pulse Resp BP Pulse Ox
97.7 F 61 18 147/75 97
01/18/24 03:10 01/18/24 03:10 01/18/24 03:10 01/18/24 03:10 01/18/24 03:10
Physical Exam
Constitutional: No Acute Distress and Comfortable
Eyes: Sclera Anicteric
Cardiovascular: S1/S2
Pulmonary: Non Labored
Gastrointestinal: Soft and Non Distended
Extremities: Edema (2+ left lower extremity) and Erythema (Left lower extremity)
Wound: Other (Left prior hallux amp area with discolored skin at site of previous reported bullae. No appreciable fluctuance. No expressible fluid.)
Neurological: Awake and Alert
Psychological: Calm
Objective Data
Lab Data
Lab Results
01/18/24 06:31
01/18/24 06:31
PT 16.5 Sec (11.4-14.6) H 01/16/24 10:17
INR 1.28 01/16/24 10:17
Estimated Creat Clear 96 ml/min 01/18/24 06:31
Lactic Acid Cancelled 01/16/24 04:36
Total Bilirubin 1.3 mg/dl (0.2-1.3) 01/16/24 10:17
AST 22 U/L (17-59) 01/16/24 10:17
ALT 27 U/L (0-50) 01/16/24 10:17
Alkaline Phosphatase 102 U/L (38-126) 01/16/24 10:17
Most recent labs reviewed.
Micro Results:
01/15/24 14:23 Blood Culture - Preliminary
Blood/Venous No Growth in 48 hours- Final report to follow
01/15/24 14:23 Blood Culture - Preliminary
Blood/Venous No Growth in 48 hours- Final report to follow
01/15/24 17:45 MRSA Screen - Final
Nose Staph aureus MRSA
Imaging:
01/16/2024 MRI left lower extremity: Generalized soft tissue edema. No focal fluid collection or abscess. No MR evidence of osteomyelitis or occult fracture. Plantar musculature with generalized diffuse intramuscular edema. The appearance is
nonspecific, and could suggest microvascular disease, myositis, inflammatory myopathy, overuse (delayed onset muscle soreness) or denervation changes.
--- NOTE | 2024-01-18 09:24 | PHA.VAN.FU ---
Vancomycin Assessment / Plan
- Assessment
Renal Function: Stable
WBC's are: WNL
In the past 24 hrs, patient has been: Afebrile
Concomitant Antimicrobials: piperacillin-tazobactam
- Assessment - Therapeutic Drug Monitoring
Extrapolated Cmax (mcg/mL): 24.7
Peak level was drawn: Appropriately
Extrapolated Cmin (mcg/mL): 18.5
Trough Drawn: Appropriately
Levels were drawn: At steady state (after 4th maintenance dose plus 2 g loading dose)
Calculated AUC (mcg*h/mL): 515
Calculated ke: 0.0273
Calculated half life (H): 25.4
Calculated Vd (L): 177.85
Calculated Vanc CL (ml/min): 80
Based on vanc 1250 mg q12h
- Dosing Plan
Adjust Regimen to: vanc 1750 mg q24h
New Regimen Predicts: AUC (371), Peak (20.5), Trough (11.2)
Dosing cautiously due to contrast given during angiogram 01/16; Extending interval based on half-life. Will give extra 500 mg dose 01/17
- Monitoring Plan
No level(s) ordered at this time: consider in the upcoming days
- Follow Up
Pharmacy will continue to follow.
Vancomycin Follow UP
- -
Patient Age: 73
Patient Sex: Male
Vancomycin Day #: 3
Indication: Bone And Joint (OM; LLE CELLULITIS)
Requesting Provider: Dr Nair/ Dr Godinez
Height / Weight:
Height 6 ft
Actual Weight 112.491 kg
Pertinent Past Medical History: IDDM, toe amputation; s/p 01/16 LLE angiogram and stent
- Vital Signs / Lab Results
Temp Pulse Resp BP Pulse Ox
98.4 F 68 18 160/80 96
01/18/24 07:30 01/18/24 07:30 01/18/24 07:30 01/18/24 07:30 01/18/24 07:30
Lab Results - Hematology
01/15/24 01/16/24 01/18/24
10:54 10:17 06:31
WBC 12.1 H 9.6 8.8
Lab Results - Chemistry
01/15/24 01/16/24 01/18/24
10:54 10:17 06:31
BUN 27 H 20 18
Creatinine 1.0 1.0 0.9
Estimated Creat Clear 87 88 96
Albumin Cancelled 2.9 L
01/15/24 01/15/24 01/15/24
10:54 14:45 16:36
Lactic Acid 1.8 Cancelled Cancelled
01/15/24 01/16/24 01/16/24
20:36 00:36 04:36
Lactic Acid Cancelled Cancelled Cancelled
Microbiology Results
01/15/24 14:23 Blood Culture - Preliminary
Blood/Venous No Growth in 48 hours- Final report to follow
01/15/24 14:23 Blood Culture - Preliminary
Blood/Venous No Growth in 48 hours- Final report to follow
01/15/24 17:45 MRSA Screen - Final
Nose Staph aureus MRSA
Therapeutic Drug Monitoring
Vancomycin Peak 23.7 ug/ml (18-26) 01/17/24 21:02
Vancomycin Trough 18.3 ug/ml (5-20) 01/18/24 06:31
[2024-01-18] MEDS: NOVOLOG FLEXPEN-MODERATE RESISTANCE SC (09:33)
[2024-01-18] MEDS: APRESOLINE 10 MG PO ×3 (09:36→22:37)
[2024-01-18] MEDS: FARXIGA 10 MG PO (09:36)
[2024-01-18] MEDS: NORVASC 5 MG PO ×2 (09:36→20:55)
[2024-01-18] MEDS: BACTROBAN 2% OINTMENT 1 APPLIC TOPICAL (09:38)
[2024-01-18] MEDS: LASIX 40 MG IV (09:39)
[2024-01-18] MEDS: LOW STRENGTH ASPIRIN 81 MG PO (09:40)
[2024-01-18] MEDS: VITAMIN B-12 1000 MCG PO (09:40)
[2024-01-18] MEDS: LIPITOR 20 MG PO (09:40)
[2024-01-18] MEDS: ZESTRIL 20 MG PO (09:41)
--- NOTE | 2024-01-18 09:52 | W.PN.VS ---
Today's Communication / Plan
-
See below.
Assessment/Plan
-
Assessment: 73-year-old male POD #1
1. Duplex assisted right common femoral artery cannulation.
2. Aortogram and pelvic angiogram.
3. Left lower extremity arteriogram with third order vessel catheterization of left posterior tibial artery via right common femoral artery puncture.
4. Balloon angioplasty and stent placement ([place] PTX 6 mm x 4 cm) left superficial femoral artery.
5. Long segment balloon angioplasty of posterior tibial artery with 3 mm x 20 cm angioplasty balloon.
6. Right femoral angiogram and Bruce Pro-glide percutaneous suture closure.
7. Supervision and interpretation.
Plan:
Tegaderm from right groin can be removed later this afternoon
Continue aspirin 81 mg p.o. daily
From a vascular surgical perspective home anticoagulation of Eliquis 5 mg p.o. twice daily can be restarted this morning
Patient will follow-up in office with ultrasound and appointment as scheduled
We will sign off please call with questions or concerns
Subjective Data
-
Date of Service: January 18, 2024
Patient seen and examined at bedside, offers no complaints. Denies nausea, vomiting, fever, and chills. Denies pain at right groin. Endorses no difficulty with ambulation.
Objective Data
-
Vital Signs
Temp Pulse Resp BP Pulse Ox
98.4 F 68 18 160/80 96
01/18/24 07:30 01/18/24 07:30 01/18/24 07:30 01/18/24 07:30 01/18/24 07:30
Intake and Output
01/17/24 01/18/24 01/19/24
06:59 06:59 06:59
Intake Total 0 / 0 2395 / 2395
Output Total 825 / 825 3675 / 3675
Balance -825 / -825 -1280 / -1280
Intake:
Oral fluids 0 / 0 960 / 960
IV fluids (Total) 960 / 960
IV piggybacks 475 / 475
Output:
Urine, Voided 825 / 825 3675 / 3675
Other:
Number of approximated MODERATE 1
amounts of urine
Lab Results
01/18/24 06:31
01/18/24 06:31
Calcium 8.1 mg/dl (8.4-10.2) L 01/18/24 06:31
Total Bilirubin 1.3 mg/dl (0.2-1.3) 01/16/24 10:17
AST 22 U/L (17-59) 01/16/24 10:17
ALT 27 U/L (0-50) 01/16/24 10:17
Alkaline Phosphatase 102 U/L (38-126) 01/16/24 10:17
Total Protein 6.2 g/dl (6.3-8.2) L 01/16/24 10:17
Albumin 2.9 g/dl (3.5-5.0) L 01/16/24 10:17
Physical Exam
-
AAOx3, no apparent distress
No tachycardia
No dyspnea on room air
ABD rotund, nontender, nondistended
Right groin puncture site CDI, no evidence of hematoma, all surrounding compartments soft
Left foot warm, DP palpable +1
[2024-01-18] MEDS: VANCOCIN HCL 500 MG 100 IV (10:49)
--- NOTE | 2024-01-18 12:00 | CM ---
CM reviewed chart, patient seen bedside. Patient remains on IV antibiotics. Patient declining needs at this time. Patient has history of [facility], watch for VN needs upon discharge. CM will continue to follow for all discharge planning needs.
Plan; home, watch for VN needs upon discharge.
[2024-01-18 12:13] VITALS: BP 152/79
[2024-01-18 12:39] LABS: Glucose - Point of Care 228 mg/dl (70-99)
[2024-01-18] MEDS: NOVOLOG FLEXPEN-MODERATE RESISTANCE 3 UNITS SC (13:37)
[2024-01-18 15:00] VITALS: BP 168/59
--- NOTE | 2024-01-18 15:41 | W.PN.HOSP.TC ---
Today's Communication/Plan
-
Status post angioplasty with a revascularization on 01/16
Continue aspirin
Podiatry to see and determine if requires additional debridement.
Continue Zosyn
Hold Lasix
Monitor renal function post IV contrast exposure.
Avoid hypotension.
Assessment / Plan
Assessment / Plan
73-year-old male with PMH significant for IDDM, PE in May, on Eliquis peripheral neuropathy, who presents with 3-4 days (since Sunday) of worsening swelling/edema and redness, to the left lower leg , associated with blisters on the site of prior
amputation of the large toe that are weeping. He had chills last week. He had epidural steroid injection last week. No fevers, no chills, no n/v/d. No pain due to neuropathy.. He has been seeing wound care for an abrasion on the left knee. He
sees Concessionist Dr. Hemphill as OP s/p b/l first toe amputations .
# chronic left lower extremity threatening ischemia
Plan for LEFT lower extremity arteriogram, possible angioplasty/stent today per vascular.
NPO for now
Holding Eliquis
# LLE and foot cellulitis associated
s/p previous Left 1st Metatarsal Head Resection
MRI rule out osteomyelitis
c/w IV Abx
WBC normalized.
blood culture is pending
No fevers
Pain control with Tylenol
Elevate the leg with rohan wrap/ compression dressing to decrease edema
d/w podiatry
# Edema in Lower extremity
Check Pro-BNP
No hx of CHF
f/w US of LLE
Status post arteriogram with angioplasty on 01/16
Continue aspirin
Hold further Lasix
# Essential Hypertension
On amlodipine, hydralazine, Lisinopril, Lasix.
#Hyperlipidemia
# Diabetes Mellitus, Insulin Dependence
seems to have low BS, will hold pre-meal for now
c/w iSS
reduce Lantus
# Peripheral diabetic Neuropathy
# Right Knee Replacement
Bilateral Great Toe Amputation
DVT proph-Eliquis
Full Code
Total time spent to see the patient on the floor, examine the patient, review data and lab results, discuss treatment plan with patient, nursing staff around 55 minutes.
Anticipated Discharge: 24 - 48 hours
Subjective/Interval History
-
Date of Service: January 18, 2024
Objective Data
-
Labs:
Laboratory Results
01/18/24
06:31
WBC 8.8
Hgb 13.5
Hct 40.9
Plt Count 208
Sodium 135
Potassium 4.2
Chloride 104
Carbon Dioxide 25
BUN 18
Creatinine 0.9
Glucose 124 H
Calcium 8.1 L
Vital Signs:
Vital Signs
Temp Pulse Resp BP Pulse Ox
100.0 F 70 24 152/79 95
01/18/24 12:13 01/18/24 12:13 01/18/24 12:13 01/18/24 12:13 01/18/24 12:13
I&O
01/17/24 01/18/24 01/19/24
06:59 06:59 06:59
Intake Total 0 / 0 2395 / 2395
Output Total 825 / 825 3675 / 3675
Balance -825 / -825 -1280 / -1280
Physical Exam
-
General: Well Developed, No Apparent Distress, Comfortable and Obese
HEENT: Atraumatic, Moist Mucous Membranes and Other (right eye corneal opacity )
Respiratory: Clear to Auscultation
Cardiac: Regular Rhythm and S1/S2
GI: Soft, Nontender and Nondistended
Rectal: Negative Maroon Stools
Genito-urinary: No Costovertebral Tender
Musculoskeletal: No Cyanosis
Skin: Warm and Dry
Neuro: Oriented and Nonfocal/Grossly Intact; Negative Slurred Speech or Facial Droop
Hematologic / Lymphatic: No Lymphadenopathy
[2024-01-18 17:07] LABS: Glucose - Point of Care 169 mg/dl (70-99)
--- NOTE | 2024-01-18 17:30 | W.PN.POD ---
Today's Communication
Today's Communication
He will f/u in my office after discharge
Assessment / Plan
-
A/P : Lt foot lower extremity cellultis
LT foot degloving blisters
Diabetic small vessel disease.
Plan : Cont IV abx per ID
Appreciate vascular surgery evaluation and arteriogram.
Left lower extremity arteriogram, left SFA balloon angioplasty and stent placement, left PT long segment balloon angioplasty
will cont to monitor the Lt foot for any worsening symptoms, Suspect diabetic small vessel disease with delayed healing, limb loss risk is high.
Discussed with patient multiple times about the importance of compressions to lower legs and accommodative shoes.
Patient is not bale to tolerate rohan wrap compressions
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
HE is stable from podiatry
Podiatry will follow.
Subjective
Chief Complaint
Lt foot ulcer, lt leg cellulitis
Subjective
Pt seen at bedside, doing well, no new complaints, no pain in LT foot. no fever, chills.
Slightly improved edema and erythema to Left L/E
Objective
Temp Pulse Resp BP Pulse Ox
97.7 F 55 22 168/59 95
01/18/24 15:00 01/18/24 15:00 01/18/24 15:00 01/18/24 15:00 01/18/24 15:00
01/18/24 06:31
01/18/24 06:31
Vital Signs and Lab results were reviewed.
LT foot and lower leg improved edema. Lt forefoot with improving erythema, edema and blisters now dry, no active drainage. around 1st ray amputation site and LT 2nd toe.
No gangrenous changes. no foul odor noted, No signs of any abscess or crepitus felt.
[2024-01-18] MEDS: NOVOLOG FLEXPEN-MODERATE RESISTANCE 1 UNITS SC (17:40)
[2024-01-18 19:00] VITALS: BP 135/76
[2024-01-18] MEDS: TYLENOL 650 MG PO (20:55)
[2024-01-18 22:21] LABS: Glucose - Point of Care 157 mg/dl (70-99)
[2024-01-18] MEDS: LANTUS 0.2 UNITS SC (22:42)
[2024-01-18 23:00] VITALS: BP 152/78
[2024-01-19] VITALS (7 sets, daily range): BP systolic 124–142; BP diastolic 66–86; BMI 33.4
[2024-01-19] MEDS: ZOSYN 50 IV ×4 (02:51→20:57)
[2024-01-19] MEDS: VANCOCIN 535 MG IV (05:37)
[2024-01-19 07:42] LABS: Glucose - Point of Care 141 mg/dl (70-99)
[2024-01-19] MEDS: NOVOLOG FLEXPEN-MODERATE RESISTANCE SC ×3 (07:58→17:15)
[2024-01-19 08:34] LABS: Blood Urea Nitrogen 20 mg/dl (9-20); Calcium 8.1 mg/dl (8.4-10.2); Carbon Dioxide 27 mmol/L (22-30); Chloride 102 mmol/L (98-107); Estimated Creatinine Clearance 86 ml/min; Glucose 133 mg/dl (70-99); Potassium 4.4 mmol/L (3.5-5.1); Sodium 134 mmol/L (135-145); eGFR > 60.00
[2024-01-19] MEDS: LOW STRENGTH ASPIRIN 81 MG PO (08:36)
[2024-01-19] MEDS: VITAMIN B-12 1000 MCG PO (08:36)
[2024-01-19] MEDS: APRESOLINE 10 MG PO ×3 (08:36→23:11)
[2024-01-19] MEDS: LIPITOR 20 MG PO (08:36)
[2024-01-19] MEDS: FARXIGA 10 MG PO (08:36)
[2024-01-19] MEDS: BACTROBAN 2% OINTMENT 1 APPLIC TOPICAL (08:36)
[2024-01-19] MEDS: ZESTRIL 20 MG PO (08:37)
[2024-01-19] MEDS: NORVASC 5 MG PO ×2 (08:37→20:56)
--- NOTE | 2024-01-19 09:40 | W.PN.HOSP.TC ---
Today's Communication/Plan
-
Monitor wound healing progression very closely
c/w Abx for now
No need for more Lasix.
Assessment / Plan
Assessment / Plan
Physical Exam
-
General: Well Developed, No Apparent Distress, Comfortable and Obese
HEENT: Atraumatic, Moist Mucous Membranes and Other (right eye corneal opacity )
Respiratory: Clear to Auscultation
Cardiac: Regular Rhythm and S1/S2
GI: Soft, Nontender and Nondistended
Rectal: Negative Maroon Stools
Genito-urinary: No Costovertebral Tender
Musculoskeletal: No Cyanosis, left foot: amputated first toe, blister with ecchymosis seen on site of 1st toe base , second toe also erythema with scabbed ulcer.
Skin: Warm and Dry
Neuro: Oriented and Nonfocal/Grossly Intact; Negative Slurred Speech or Facial Droop
Hematologic / Lymphatic: No Lymphadenopathy
73-year-old male with PMH significant for IDDM, PE in May, on Eliquis peripheral neuropathy, who presents with 3-4 days (since Sunday) of worsening swelling/edema and redness, to the left lower leg , associated with blisters on the site of prior
amputation of the large toe that are weeping. He had chills last week. He had epidural steroid injection last week. No fevers, no chills, no n/v/d. No pain due to neuropathy.. He has been seeing wound care for an abrasion on the left knee. He
sees Extracting Machine Operator Dr. Hemphill as OP s/p b/l first toe amputations .
# chronic left lower extremity threatening ischemia
s/p left lower extremity arteriogram with balloon angioplasty + stent by Dr Casiano on 01/16, c/w aspirin for now, monitor progress of wound healing. Pt feels no pain. Resumed Eliquis
# LLE and foot cellulitis associated
s/p previous Left 1st Metatarsal Head Resection
MRI rule out osteomyelitis
c/w IV Abx
WBC normalized.
blood culture is pending
No fevers
Pain control with Tylenol
Elevate the leg with rohan wrap/ Tubigrip dressing to decrease edema
d/w podiatry
# Edema in Lower extremity
Mild elevation Pro-BNP
No hx of CHF
Status post arteriogram with angioplasty on 01/16
Continue aspirin
No need for more Lasix.
# Hyponatremia, mild, no confusion.
# Essential Hypertension
On amlodipine, hydralazine, Lisinopril.
#Hyperlipidemia
# Diabetes Mellitus, Insulin Dependence
seems to have low BS, will hold pre-meal for now
c/w iSS
reduce Lantus
# Peripheral diabetic Neuropathy
# Right Knee Replacement
Bilateral Great Toe Amputation
DVT proph-Eliquis
Full Code
Total time spent to see the patient on the floor, examine the patient, review data and lab results, discuss treatment plan with patient, nursing staff around 55 minutes.
Anticipated Discharge: 24 - 48 hours
Subjective/Interval History
-
Date of Service: January 19, 2024
No pain in leg
No fevers
Objective Data
-
Labs:
Laboratory Results
01/19/24
07:28
Sodium 134 L
Potassium 4.4
Chloride 102
Carbon Dioxide 27
BUN 20
Creatinine 1.0
Glucose 133 H
Calcium 8.1 L
Vital Signs:
Vital Signs
Temp Pulse Resp BP Pulse Ox
98.3 F 67 20 142/66 98
01/19/24 08:57 01/19/24 08:57 01/19/24 08:57 01/19/24 08:57 01/19/24 08:57
I&O
01/18/24 01/19/24 01/20/24
06:59 06:59 06:59
Intake Total 2395 / 2395 1900 / 1900
Output Total 3675 / 3675 4635 / 4635
Balance -1280 / -1280 -2735 / -2735
--- NOTE | 2024-01-19 10:30 | PHA.VAN.FU ---
Vancomycin Assessment / Plan
- Assessment
Renal Function: Stable
WBC's are: WNL
In the past 24 hrs, patient has been: Afebrile
Concomitant Antimicrobials: piperacillin/tazobactam
- Dosing Plan
Continue: vancomycin 1750 mg q24h ( dose adjustment started 01/19/24 0600)
- Monitoring Plan
No level(s) ordered at this time: consider levels after a few days
- Follow Up
Pharmacy will continue to follow.
Vancomycin Follow UP
- -
Patient Age: 73
Patient Sex: Male
Vancomycin Day #: 4
Indication: Bone And Joint (OM; LLE CELLULITIS)
Requesting Provider: Dr Nair/ Dr Godinez
Height / Weight:
Height 6 ft
Actual Weight 111.584 kg
Pertinent Past Medical History: IDDM, toe amputation; s/p 01/16 LLE angiogram and stent
- Vital Signs / Lab Results
Temp Pulse Resp BP Pulse Ox
98.3 F 67 20 142/66 98
01/19/24 08:57 01/19/24 08:57 01/19/24 08:57 01/19/24 08:57 01/19/24 08:57
Lab Results - Hematology
01/16/24 01/18/24
10:17 06:31
WBC 9.6 8.8
Lab Results - Chemistry
01/16/24 01/18/24 01/19/24
10:17 06:31 07:28
BUN 20 18 20
Creatinine 1.0 0.9 1.0
Estimated Creat Clear 88 96 86
Albumin 2.9 L
Microbiology Results
01/15/24 14:23 Blood Culture - Preliminary
Blood/Venous No Growth in 72 hours- Final report to follow
01/15/24 14:23 Blood Culture - Preliminary
Blood/Venous No Growth in 72 hours- Final report to follow
01/15/24 17:45 MRSA Screen - Final
Nose Staph aureus MRSA
Therapeutic Drug Monitoring
Vancomycin Peak 23.7 ug/ml (18-26) 01/17/24 21:02
Vancomycin Trough 18.3 ug/ml (5-20) 01/18/24 06:31
[2024-01-19 11:47] LABS: Glucose - Point of Care 145 mg/dl (70-99)
[2024-01-19] MEDS: NOVOLOG FLEXPEN 3 UNITS SC ×2 (12:42→18:13)
--- NOTE | 2024-01-19 14:18 | W.PN.ID1 ---
Date of Service
Date of Service: January 19, 2024
Today's Communication
Continue Vancomycin and Zosyn.
Assessment / Plan
Left lower extremity cellulitis
Left foot cellulitis
Leukocytosis; improved
PAD s/p LLE angioplasty and stent (01/17/24)
HTN
Dyslipidemia
DM type II
Right eye cataract
Recommendations:
Foot stable.
Continue with empiric vancomycin and Zosyn
Monitor white count & temperature curve.
Continue with lower extremity elevation and compression.
����������������������������������������������������������
Chief Complaint
-: Cellulitis
Subjective / Review of Systems
He thinks foot redness better.
Vital Signs / Physical Exam
Vital Signs
Vital Signs
Temp Pulse Resp BP Pulse Ox
98.4 F 64 16 127/72 97
01/19/24 12:26 01/19/24 12:26 01/19/24 12:26 01/19/24 12:26 01/19/24 12:26
Physical Exam
Constitutional: No Acute Distress and Comfortable
Pulmonary: Clear
Gastrointestinal: Soft, Non Tender and Non Distended
Extremities: Edema (BLE)
Wound: Other (Left foot + edema, + bright erythema forefoot, 2nd toe tip with black necrosis, + exfoliated skin from blister overlying first second toe and over hallux amp site, tissue underneath not as purplish )
Neurological: AO x 3
Objective Data
Lab Data
Lab Results
01/18/24 06:31
01/19/24 07:28
PT 16.5 Sec (11.4-14.6) H 01/16/24 10:17
INR 1.28 01/16/24 10:17
Estimated Creat Clear 86 ml/min 01/19/24 07:28
Lactic Acid Cancelled 01/16/24 04:36
Total Bilirubin 1.3 mg/dl (0.2-1.3) 01/16/24 10:17
AST 22 U/L (17-59) 01/16/24 10:17
ALT 27 U/L (0-50) 01/16/24 10:17
Alkaline Phosphatase 102 U/L (38-126) 01/16/24 10:17
Most recent labs reviewed.
Micro Results:
01/15/24 14:23 Blood Culture - Preliminary
Blood/Venous No Growth in 72 hours- Final report to follow
01/15/24 14:23 Blood Culture - Preliminary
Blood/Venous No Growth in 72 hours- Final report to follow
01/15/24 17:45 MRSA Screen - Final
Nose Staph aureus MRSA
Imaging:
01/16/2024 MRI left lower extremity: Generalized soft tissue edema. No focal fluid collection or abscess. No MR evidence of osteomyelitis or occult fracture. Plantar musculature with generalized diffuse intramuscular edema. The appearance is
nonspecific, and could suggest microvascular disease, myositis, inflammatory myopathy, overuse (delayed onset muscle soreness) or denervation changes.
Care Review
Plan reviewed with: Nurse (Rosina)
[2024-01-19 17:06] LABS: Glucose - Point of Care 128 mg/dl (70-99)
[2024-01-19] MEDS: ELIQUIS 5 MG PO (20:56)
[2024-01-19] MEDS: TYLENOL 650 MG PO (21:05)
[2024-01-19 21:24] LABS: Glucose - Point of Care 164 mg/dl (70-99)
[2024-01-19] MEDS: LANTUS 0.2 UNITS SC (23:11)
[2024-01-20] MEDS: ZOSYN 50 IV ×4 (01:59→21:24)
[2024-01-20 03:45] VITALS: BP 147/75
[2024-01-20 06:00] VITALS: BMI 33.7
[2024-01-20] MEDS: VANCOCIN 535 MG IV (06:21)
[2024-01-20 07:15] VITALS: BP 152/83
[2024-01-20 07:33] LABS: Glucose - Point of Care 119 mg/dl (70-99)
[2024-01-20] MEDS: NOVOLOG FLEXPEN 3 UNITS SC ×3 (07:39→17:02)
[2024-01-20] MEDS: NOVOLOG FLEXPEN-MODERATE RESISTANCE SC (07:39)
[2024-01-20] MEDS: BACTROBAN 2% OINTMENT 1 APPLIC TOPICAL (07:40)
[2024-01-20] MEDS: ZESTRIL 20 MG PO (07:41)
[2024-01-20] MEDS: NORVASC 5 MG PO ×2 (07:41→21:23)
[2024-01-20] MEDS: FARXIGA 10 MG PO (07:41)
[2024-01-20] MEDS: VITAMIN B-12 1000 MCG PO (07:41)
[2024-01-20] MEDS: LOW STRENGTH ASPIRIN 81 MG PO (07:41)
[2024-01-20] MEDS: LIPITOR 20 MG PO (07:41)
[2024-01-20] MEDS: ELIQUIS 5 MG PO ×2 (07:41→21:23)
[2024-01-20] MEDS: APRESOLINE 10 MG PO ×3 (07:41→21:23)
--- NOTE | 2024-01-20 09:47 | W.PN.HOSP.TC ---
Today's Communication/Plan
-
c/w IV Abx
Monitor wound progression
Assessment / Plan
Assessment / Plan
Physical Exam
-
General: Well Developed, No Apparent Distress, Comfortable and Obese
HEENT: Atraumatic, Moist Mucous Membranes and Other (right eye corneal opacity )
Respiratory: Clear to Auscultation
Cardiac: Regular Rhythm and S1/S2
GI: Soft, Nontender and Nondistended
Rectal: Negative Maroon Stools
Genito-urinary: No Costovertebral Tender
Musculoskeletal: No Cyanosis, left foot: amputated first toe, blister with ecchymosis seen on site of 1st toe base , second toe also erythema with scabbed ulcer.
Skin: Warm and Dry
Neuro: Oriented and Nonfocal/Grossly Intact; Negative Slurred Speech or Facial Droop
Hematologic / Lymphatic: No Lymphadenopathy
73-year-old male with PMH significant for IDDM, PE in May, on Eliquis peripheral neuropathy, who presents with 3-4 days (since Sunday) of worsening swelling/edema and redness, to the left lower leg , associated with blisters on the site of prior
amputation of the large toe that are weeping. He had chills last week. He had epidural steroid injection last week. No fevers, no chills, no n/v/d. No pain due to neuropathy.. He has been seeing wound care for an abrasion on the left knee. He
sees [employer] Dr. Hemphill as OP s/p b/l first toe amputations .
# chronic left lower extremity threatening ischemia
s/p left lower extremity arteriogram with balloon angioplasty + stent by Dr Casiano on 01/16, c/w aspirin for now, monitor progress of wound healing. Pt feels no pain. Resumed Eliquis
# LLE and foot cellulitis associated
s/p previous Left 1st Metatarsal Head Resection
MRI rule out osteomyelitis
Wound seems to be stable with no spreading edges.
c/w IV Abx
WBC normalized.
blood culture is no growth
No fevers
Pain control with Tylenol
Elevate the leg with rohan wrap/ Tubigrip dressing to decrease edema
d/w podiatry
# Edema in Lower extremity
Mild elevation Pro-BNP
No hx of CHF
Status post arteriogram with angioplasty on 01/16
Continue aspirin
No need for more Lasix.
# Hyponatremia, mild, no confusion.
# Essential Hypertension
On amlodipine, hydralazine, Lisinopril.
#Hyperlipidemia
# Diabetes Mellitus, Insulin Dependence
seems to have low BS, will hold pre-meal for now
c/w iSS
reduce Lantus
# Peripheral diabetic Neuropathy
# Right Knee Replacement
Bilateral Great Toe Amputation
DVT proph-Eliquis
Full Code
Total time spent to see the patient on the floor, examine the patient, review data and lab results, discuss treatment plan with patient, optimization manager, ID doctor, nursing staff around 57 minutes.
Anticipated Discharge: 24 - 48 hours
Subjective/Interval History
-
Date of Service: January 20, 2024
No chest pain
No sob
Objective Data
-
Vital Signs:
Vital Signs
Temp Pulse Resp BP Pulse Ox
98.0 F 62 16 152/83 99
01/20/24 07:15 01/20/24 07:15 01/20/24 07:15 01/20/24 07:15 01/20/24 07:15
I&O
01/19/24 01/20/24 01/21/24
06:59 06:59 06:59
Intake Total 1900 / 1900 1360 / 1360
Output Total 4635 / 4635 2049
Balance -2735 / -2735 -690 / -690
--- NOTE | 2024-01-20 10:15 | PHA.VAN.FU ---
Vancomycin Assessment / Plan
- Assessment
Renal Function: No New Labs Today
WBC's are: Stable
In the past 24 hrs, patient has been: Afebrile
Concomitant Antimicrobials: piperacillin/tazo
- Dosing Plan
Continue: vancomycin 1750 mg q24h
- Monitoring Plan
Peak Level: peak level 01/20 930
Trough Level: trough 01/21 530
- Follow Up
Pharmacy will continue to follow.
Vancomycin Follow UP
- -
Patient Age: 73
Patient Sex: Male
Vancomycin Day #: 5
Indication: Bone And Joint (OM; LLE CELLULITIS)
Requesting Provider: Dr Nair/ Dr Godinez
Height / Weight:
Height 6 ft
Actual Weight 112.627 kg
Pertinent Past Medical History: IDDM, toe amputation; s/p 01/16 LLE angiogram and stent
- Vital Signs / Lab Results
Temp Pulse Resp BP Pulse Ox
98.0 F 62 16 152/83 99
01/20/24 07:15 01/20/24 07:15 01/20/24 07:15 01/20/24 07:15 01/20/24 07:15
Lab Results - Hematology
01/18/24
06:31
WBC 8.8
Lab Results - Chemistry
01/18/24 01/19/24
06:31 07:28
BUN 18 20
Creatinine 0.9 1.0
Estimated Creat Clear 96 86
Microbiology Results
01/15/24 14:23 Blood Culture - Preliminary
Blood/Venous No Growth in 4 days- Final report to follow
01/15/24 14:23 Blood Culture - Preliminary
Blood/Venous No Growth in 4 days- Final report to follow
Therapeutic Drug Monitoring
Vancomycin Peak 23.7 ug/ml (18-26) 01/17/24 21:02
Vancomycin Trough 18.3 ug/ml (5-20) 01/18/24 06:31
[2024-01-20 11:33] LABS: Glucose - Point of Care 163 mg/dl (70-99)
[2024-01-20 11:43] VITALS: BP 156/81
[2024-01-20] MEDS: NOVOLOG FLEXPEN-MODERATE RESISTANCE 1 UNITS SC ×2 (12:56→17:02)
--- NOTE | 2024-01-20 13:17 | W.PN.ID1 ---
Date of Service
Date of Service: January 20, 2024
Today's Communication
Continue Vancomycin and Zosyn for now.
Assessment / Plan
Left lower extremity cellulitis
Left foot cellulitis
Leukocytosis; improved
PAD s/p LLE angioplasty and stent (01/17/24)
HTN
Dyslipidemia
DM type II
Right eye cataract
Recommendations:
Cellulitis improved.
Tissue under previous blisters without improvement. Consider debridement.
Continue with empiric vancomycin and Zosyn
Monitor white count & temperature curve.
Continue with lower extremity elevation and compression.
����������������������������������������������������������
Chief Complaint
-: Cellulitis
Subjective / Review of Systems
He thinks foot is better.
Vital Signs / Physical Exam
Vital Signs
Vital Signs
Temp Pulse Resp BP Pulse Ox
98.2 F 68 16 156/81 95
01/20/24 11:43 01/20/24 11:43 01/20/24 11:43 01/20/24 11:43 01/20/24 11:43
Physical Exam
Constitutional: No Acute Distress and Comfortable
Pulmonary: Clear
Gastrointestinal: Soft, Non Tender and Non Distended
Extremities: Edema (BLE)
Wound: Other ( See photo. Forefoot erythema decreased. Wound beneath skin over first toe amp site and 2nd toe purplish)
Neurological: AO x 3
Objective Data
Lab Data
Lab Results
01/18/24 06:31
01/19/24 07:28
PT 16.5 Sec (11.4-14.6) H 01/16/24 10:17
INR 1.28 01/16/24 10:17
Estimated Creat Clear 86 ml/min 01/19/24 07:28
Lactic Acid Cancelled 01/16/24 04:36
Total Bilirubin 1.3 mg/dl (0.2-1.3) 01/16/24 10:17
AST 22 U/L (17-59) 01/16/24 10:17
ALT 27 U/L (0-50) 01/16/24 10:17
Alkaline Phosphatase 102 U/L (38-126) 01/16/24 10:17
Most recent labs reviewed.
Micro Results:
01/15/24 14:23 Blood Culture - Preliminary
Blood/Venous No Growth in 4 days- Final report to follow
01/15/24 14:23 Blood Culture - Preliminary
Blood/Venous No Growth in 4 days- Final report to follow
01/15/24 17:45 MRSA Screen - Final
Nose Staph aureus MRSA
01/18/25
01/20/24
Imaging:
01/16/2024 MRI left lower extremity: Generalized soft tissue edema. No focal fluid collection or abscess. No MR evidence of osteomyelitis or occult fracture. Plantar musculature with generalized diffuse intramuscular edema. The appearance is
nonspecific, and could suggest microvascular disease, myositis, inflammatory myopathy, overuse (delayed onset muscle soreness) or denervation changes.
Care Review
Plan reviewed with: Physician (Dr. Marvin)
[2024-01-20 15:29] VITALS: BP 149/72
[2024-01-20 16:26] LABS: Glucose - Point of Care 164 mg/dl (70-99)
[2024-01-20 19:30] VITALS: BP 125/62
[2024-01-20 21:05] LABS: Glucose - Point of Care 191 mg/dl (70-99)
[2024-01-20] MEDS: LANTUS 0.2 UNITS SC (22:40)
[2024-01-20 23:30] VITALS: BP 147/81
[2024-01-21] MEDS: ZOSYN 50 IV ×3 (03:03→13:34)
[2024-01-21] MEDS: VANCOCIN 535 MG IV (05:53)
[2024-01-21 06:00] VITALS: BMI 33.5
[2024-01-21 07:18] LABS: Glucose - Point of Care 269 mg/dl (70-99)
[2024-01-21 08:00] VITALS: BP 144/79
[2024-01-21] MEDS: APRESOLINE 10 MG PO ×3 (08:29→22:07)
[2024-01-21] MEDS: VITAMIN B-12 1000 MCG PO (08:30)
[2024-01-21] MEDS: LIPITOR 20 MG PO (08:30)
[2024-01-21] MEDS: ELIQUIS 5 MG PO ×2 (08:30→22:08)
[2024-01-21] MEDS: FARXIGA 10 MG PO (08:30)
[2024-01-21] MEDS: ZESTRIL 20 MG PO (08:30)
[2024-01-21] MEDS: LOW STRENGTH ASPIRIN 81 MG PO (08:30)
[2024-01-21] MEDS: NORVASC 5 MG PO ×2 (08:30→22:08)
[2024-01-21] MEDS: NOVOLOG FLEXPEN 3 UNITS SC ×3 (08:31→17:37)
[2024-01-21] MEDS: NOVOLOG FLEXPEN-MODERATE RESISTANCE 5 UNITS SC (08:31)
--- NOTE | 2024-01-21 09:21 | PHA.VAN.FU ---
Addendum entered and electronically signed by Mariana Beach RPH 01/22/24 07:57:
Regimen discontinued but peak and trough both collected. Vanc 1750mg Q24H provided the following patient-specific PK:
- Assessment - Therapeutic Drug Monitoring
Extrapolated Cmax (mcg/mL): 31
Peak level was drawn: Appropriately (drawn ~1.5H after end of previous infusion)
Extrapolated Cmin (mcg/mL): 14.5
Trough Drawn: Appropriately
Levels were drawn: At steady state (levels drawn after 4th total dose of 1750mg)
Calculated AUC (mcg*h/mL): 522
Calculated ke: 0.0346
Calculated half life (H): 20
Calculated Vd (L): 97 (~0.9 L/kg)
Calculated Vanc CL (ml/min): 56
Renal function stable
Original Note:
Vancomycin Assessment / Plan
- Assessment
Renal Function: Stable
WBC's are: WNL
In the past 24 hrs, patient has been: Afebrile
Concomitant Antimicrobials: piperacillin/tazobactam
- Dosing Plan
Continue: Vanc 1750mg Q24H
- Monitoring Plan
Peak Level: peak = 29.4 - will assess with trough in AM
Trough Level: 01/21 05:30
Monitoring Comments: levels drawn after 4th dose of new regimen
will obtain BUN & SCR with trough in AM
- Follow Up
Pharmacy will continue to follow.
Vancomycin Follow UP
- -
Patient Age: 73
Patient Sex: Male
Vancomycin Day #: 6
Indication: [facility]
Requesting Provider: Dr Nair/ Dr Godinez
Pertinent Antimicrobial Allergies:
NKDA
Height / Weight:
Height 6 ft
Actual Weight 112 kg
Pertinent Past Medical History: BMI ~34, DM II
- Vital Signs / Lab Results
Temp Pulse Resp BP Pulse Ox
98.1 F 64 18 144/79 100
01/21/24 08:00 01/21/24 08:00 01/21/24 08:00 01/21/24 08:00 01/21/24 08:00
Lab Results - Chemistry
01/19/24
07:28
BUN 20
Creatinine 1.0
Estimated Creat Clear 86
Microbiology Results
01/15/24 14:23 Blood Culture - Final
Blood/Venous No Growth - Final Report
01/15/24 14:23 Blood Culture - Final
Blood/Venous No Growth - Final Report
Therapeutic Drug Monitoring
Vancomycin Peak 23.7 ug/ml (18-26) 01/17/24 21:02
Vancomycin Trough 18.3 ug/ml (5-20) 01/18/24 06:31
[2024-01-21] MEDS: BACTROBAN 2% OINTMENT 1 APPLIC TOPICAL (09:42)
[2024-01-21 10:04] LABS: Vancomycin Peak 29.4 ug/ml (18-26)
[2024-01-21 10:27] LABS: Blood Urea Nitrogen 20 mg/dl (9-20); Calcium 8.3 mg/dl (8.4-10.2); Carbon Dioxide 24 mmol/L (22-30); Chloride 103 mmol/L (98-107); Estimated Creatinine Clearance 86 ml/min; Glucose 163 mg/dl (70-99); Potassium 4.4 mmol/L (3.5-5.1); Sodium 135 mmol/L (135-145); eGFR > 60.00
--- NOTE | 2024-01-21 11:37 | CM ---
Addendum entered by Mónica Winters 01/21/24 16:22:
CM reviewed with Hospitalist- plan for d/c tomorrow.
Addendum entered by Mónica Winters 01/21/24 16:05:
Patient seen bedside, discussed discharge order in. Patient surprised to hear he is being discharged, reports he does not have transportation at this time, will have transport tomorrow. Patient agreeable to referral to VN. IMM verbally reviewed,
agreeable, placed in chart. TT to Hospitalist with update as patient is concerned with discharge.
Original Note:
CM reviewed chart, patient seen bedside. Patient remains on IV antibiotics. Patient has had [facility] in past, will discuss with patient upon discharge if he would like VN services. CM will continue to follow for all discharge planning needs.
Plan; home with [facility] likely.
[2024-01-21 11:38] LABS: Glucose - Point of Care 108 mg/dl (70-99)
[2024-01-21] MEDS: NOVOLOG FLEXPEN-MODERATE RESISTANCE SC ×2 (11:41→17:27)
[2024-01-21 11:54] LABS: Hematocrit 41.3 % (39.0-52.0); Hemoglobin 13.4 g/dL (13.0-18.0); Mean Corp Hgb Conc. 32.4 g/dL (33.0-37.0); Mean Corpuscular Hgb 29.3 pg (27.0-31.0); Mean Corpuscular Volume 90.4 fL (80.0-94.0); Mean Platelet Volume 9.1 fL (7.4-10.4); Platelet Count 291 10^3/uL (130-400); Red Blood Cell Count 4.57 10^6/uL (4.70-6.10); Red Cell Dist. Width 13.8 % (11.5-14.5); White Blood Cell Count 7.7 10^3/uL (4.8-10.8)
--- NOTE | 2024-01-21 12:52 | W.PN.HOSP.TC ---
Addendum entered and electronically signed by Aidan Meyer MD 01/21/24 15:22:
Discussed with podiatry and correspondence noted. Per podiatry patient can be discharged. Patient transition off IV antibiotics to p.o. Augmentin per infectious disease.
DC home.
More than 30 minutes spent in discharge including
Final examination of the patient
Summarizing hospital stay
Instructions for continuing care to all relevant caregivers
Preparation of discharge records, prescriptions, and referral forms
Total time spent (in minutes): 52
Original Note:
Today's Communication/Plan
-
await podiatry input ?debridement or not
IV abx
increase lantus
ID recs
Assessment / Plan
Assessment / Plan
Physical Exam
General: Well Developed, No Apparent Distress, Comfortable and Obese
HEENT: Atraumatic, Moist Mucous Membranes and Other (right eye corneal opacity )
Respiratory: Clear to Auscultation
Cardiac: Regular Rhythm and S1/S2
GI: Soft, Nontender and Nondistended
Rectal: Negative Maroon Stools
Genito-urinary: No Costovertebral Tender
Musculoskeletal: No Cyanosis, left foot: amputated first toe, blister with ecchymosis seen on site of 1st toe base , second toe also erythema with scabbed ulcer. No drainage noted.
Skin: Warm and Dry
Neuro: Oriented and Nonfocal/Grossly Intact; Negative Slurred Speech or Facial Droop
Hematologic / Lymphatic: No Lymphadenopathy
73-year-old male with PMH significant for IDDM, PE in May, on Eliquis peripheral neuropathy, who presents with 3-4 days (since Sunday) of worsening swelling/edema and redness, to the left lower leg , associated with blisters on the site of prior
amputation of the large toe that are weeping. He had chills last week. He had epidural steroid injection last week. No fevers, no chills, no n/v/d. No pain due to neuropathy.. He has been seeing wound care for an abrasion on the left knee. He
sees Surgical Supervisor Dr. Hemphill as OP s/p b/l first toe amputations .
# chronic left lower extremity threatening ischemia
s/p left lower extremity arteriogram with balloon angioplasty + stent by Dr Casiano on 01/16, c/w aspirin for now, monitor progress of wound healing. Pt feels no pain. Resumed Eliquis
# LLE and foot cellulitis associated
s/p previous Left 1st Metatarsal Head Resection
MRI rule out osteomyelitis
Wound seems to be stable with no spreading edges.
c/w IV Abx vancomycin and Zosyn
WBC normalized.
blood culture is no growth
No fevers
Pain control with Tylenol
Elevate the leg with rohan wrap/ Tubigrip dressing to decrease edema
TT podiatry about need for debridement or not. ID correspondence noted.
# Edema in Lower extremity
Mild elevation Pro-BNP
No hx of CHF
Status post arteriogram with angioplasty on 01/16
Continue aspirin
No need for more Lasix.
# Hyponatremia, mild, no confusion.
# Essential Hypertension
On amlodipine, hydralazine, Lisinopril.
#Hyperlipidemia
# Diabetes Mellitus, Insulin Dependence
c/w iSS. Pre-meal insulin has been held.
POC am was elevated. will increase lantus back to home dose 26u
# Peripheral diabetic Neuropathy
# Right Knee Replacement
Bilateral Great Toe Amputation
DVT proph-Eliquis
Full Code
Anticipated Discharge: Within 24 hours
Subjective/Interval History
-
Date of Service: January 21, 2024
denies foot or toe pain
tolerating diet
Objective Data
-
Labs:
Laboratory Results
01/21/24
09:23
WBC 7.7
Hgb 13.4
Hct 41.3
Plt Count 291 D
Sodium 135
Potassium 4.4
Chloride 103
Carbon Dioxide 24
BUN 20
Creatinine 1.0
Glucose 163 H
Calcium 8.3 L
Vital Signs:
Vital Signs
Temp Pulse Resp BP Pulse Ox
98.1 F 64 18 144/79 100
01/21/24 08:00 01/21/24 08:00 01/21/24 08:00 01/21/24 08:00 01/21/24 08:00
I&O
01/20/24 01/21/24 01/22/24
06:59 06:59 06:59
Intake Total 1360 / 1360 1060 / 1060
Output Total 2049 / 2049 1890 / 189
Balance -690 / -690 -830 / -830
Data Reviewed
-
Total Time Spent with Patient (in minutes): 55
--- NOTE | 2024-01-21 14:02 | W.PN.POD ---
Today's Communication
Today's Communication
HE is stable from podiatry to D/C home
Assessment / Plan
-
A/P : Lt foot lower extremity cellultis - resolved.
LT foot intact blisters, - stable
Diabetic small vessel disease - S/p : angiogram with stent and balloon
Plan : Can transition to Po abx per ID
I have drained the LT forefoot blisters gently, noted to have scant serous fluid, Applied abx and dry gauze dressings.
Will cont with daily topical abx and compressions, Pt can do them with help of his friend at home
HE will f/u with me in my office after discharge on this Sunday
S/P Left lower extremity arteriogram, left SFA balloon angioplasty and stent placement, left PT long segment balloon angioplasty
will cont to monitor the Lt foot for any worsening symptoms, Suspect diabetic small vessel disease with delayed healing, limb loss risk is high.
Surgical shoe To lt foot
No ambulatory restrictions
Will cont local wound care dry gauze and tube senior internet sales consultant to b/l lower legs
Subjective
Chief Complaint
Lt foot ulcer, lt leg cellulitis
Subjective
Pt seen at bedside, doing well, no new complaints, no pain in LT foot. no fever, chills.
improved edema and erythema to Left L/E , intact blister to LT forefoot with out much drainage.
Objective
Temp Pulse Resp BP Pulse Ox
98.1 F 64 18 144/79 100
01/21/24 08:00 01/21/24 08:00 01/21/24 08:00 01/21/24 08:00 01/21/24 08:00
01/21/24 09:23
01/21/24 09:23
Vital Signs and Lab results were reviewed.
LT foot and lower leg improved edema. resolved erythema to LT forefoot, Lt forefoot with improved edema and blisters now dry, no active drainage. around 1st ray amputation site and LT 2nd toe.
No gangrenous changes. no foul odor noted, No signs of any abscess or crepitus felt.
--- NOTE | 2024-01-21 14:58 | W.PN.ID1 ---
Date of Service
Date of Service: January 21, 2024
Today's Communication
Transition to oral Augmentin.
Assessment / Plan
Left lower extremity cellulitis
Left foot cellulitis
Leukocytosis; improved
PAD s/p LLE angioplasty and stent (01/17/24)
HTN
Dyslipidemia
DM type II
Right eye cataract
Recommendations:
Cellulitis improved.
Tissue under previous blisters without improvement. May eventually need further debridement, although may need further demarcation of nonviable tissue.
Can transition to oral Augmentin for an additional week.
Local care to the foot.
Monitor white count & temperature curve.
Continue with lower extremity elevation and compression.
����������������������������������������������������������
Chief Complaint
-: Cellulitis
Subjective / Review of Systems
Review of Systems: No Fever and No Chills
Vital Signs / Physical Exam
Vital Signs
Vital Signs
Temp Pulse Resp BP Pulse Ox
98.1 F 64 18 144/79 100
01/21/24 08:00 01/21/24 08:00 01/21/24 08:00 01/21/24 08:00 01/21/24 08:00
Physical Exam
Constitutional: No Acute Distress and Comfortable
Pulmonary: Clear
Gastrointestinal: Soft, Non Tender and Non Distended
Extremities: Edema (BLE)
Wound: Other ( Forefoot erythema decreased. Wound beneath skin over first toe amp site and 2nd toe purplish. Now with small incisions. No purulence or drainage.)
Neurological: Awake, Alert and AO x 3
Objective Data
Lab Data
Lab Results
01/21/24 09:23
01/21/24 09:23
PT 16.5 Sec (11.4-14.6) H 01/16/24 10:17
INR 1.28 01/16/24 10:17
Estimated Creat Clear 86 ml/min 01/21/24 09:23
Lactic Acid Cancelled 01/16/24 04:36
Total Bilirubin 1.3 mg/dl (0.2-1.3) 01/16/24 10:17
AST 22 U/L (17-59) 01/16/24 10:17
ALT 27 U/L (0-50) 01/16/24 10:17
Alkaline Phosphatase 102 U/L (38-126) 01/16/24 10:17
Most recent labs reviewed.
Micro Results:
01/15/24 14:23 Blood Culture - Final
Blood/Venous No Growth - Final Report
01/15/24 14:23 Blood Culture - Final
Blood/Venous No Growth - Final Report
01/15/24 17:45 MRSA Screen - Final
Nose Staph aureus MRSA
01/18/25
01/20/24
Imaging:
01/16/2024 MRI left lower extremity: Generalized soft tissue edema. No focal fluid collection or abscess. No MR evidence of osteomyelitis or occult fracture. Plantar musculature with generalized diffuse intramuscular edema. The appearance is
nonspecific, and could suggest microvascular disease, myositis, inflammatory myopathy, overuse (delayed onset muscle soreness) or denervation changes.
Care Review
Plan reviewed with: Physician (Hospitalist; Podiatry)
[2024-01-21 16:00] VITALS: BP 145/72
--- NOTE | 2024-01-21 16:21 | VNURNOTE ---
Home Health Liaison spoke with patient to discuss [facility] nurse/therapy, visits, schedule and homebound status. Patient is agreeable and understands that visits at home will be 2-3 x per week to assess and teach medical management and woundcare. [facility]
brochure provided with contact information. Patient is aware that [facility] will contact them for start of care in 1-2 days after discharge from .
[facility] referral completed in [facility].
[2024-01-21 17:24] LABS: Glucose - Point of Care 125 mg/dl (70-99)
[2024-01-21 20:59] LABS: Glucose - Point of Care 158 mg/dl (70-99)
[2024-01-21] MEDS: LANTUS 0.26 UNITS SC (22:13)
[2024-01-21] MEDS: TYLENOL 650 MG PO (22:13)
[2024-01-21] MEDS: AUGMENTIN 875 MG/125 MG 1 TABLET PO (22:13)
[2024-01-21 23:15] VITALS: BP 138/76
[2024-01-22 06:00] VITALS: BMI 32.7
[2024-01-22 06:51] LABS: Blood Urea Nitrogen 19 mg/dl (9-20); Estimated Creatinine Clearance 85 ml/min
[2024-01-22 06:55] LABS: Vancomycin Trough 14.3 ug/ml (5-20)
[2024-01-22 07:00] VITALS: BP 113/64
[2024-01-22 07:41] LABS: Glucose - Point of Care 118 mg/dl (70-99)
[2024-01-22] MEDS: NOVOLOG FLEXPEN-MODERATE RESISTANCE SC ×2 (08:11→12:48)
[2024-01-22] MEDS: NOVOLOG FLEXPEN 3 UNITS SC (08:11)
[2024-01-22] MEDS: ELIQUIS 5 MG PO (08:12)
[2024-01-22] MEDS: APRESOLINE 10 MG PO (08:12)
[2024-01-22] MEDS: ZESTRIL 20 MG PO (08:12)
[2024-01-22] MEDS: AUGMENTIN 875 MG/125 MG 1 TABLET PO (08:12)
[2024-01-22] MEDS: LOW STRENGTH ASPIRIN 81 MG PO (08:12)
[2024-01-22] MEDS: VITAMIN B-12 1000 MCG PO (08:12)
[2024-01-22] MEDS: FARXIGA 10 MG PO (08:12)
[2024-01-22] MEDS: LIPITOR 20 MG PO (08:12)
[2024-01-22] MEDS: NORVASC 5 MG PO (08:13)
[2024-01-22] MEDS: BACTROBAN 2% OINTMENT 1 APPLIC TOPICAL (08:14)
--- NOTE | 2024-01-22 11:18 | W.PN.HOSP.TC ---
Today's Communication/Plan
-
dc home VN
po abx
OP podiatry f/u
Assessment / Plan
Assessment / Plan
Physical Exam
General: Well Developed, No Apparent Distress, Comfortable and Obese
HEENT: Atraumatic, Moist Mucous Membranes and Other (right eye corneal opacity )
Respiratory: Clear to Auscultation
Cardiac: Regular Rhythm and S1/S2
GI: Soft, Nontender and Nondistended
Rectal: Negative Maroon Stools
Genito-urinary: No Costovertebral Tender
Musculoskeletal: No Cyanosis, left foot: amputated first toe, blister with ecchymosis seen on site of 1st toe base , second toe also erythema with scabbed ulcer. No drainage noted.
Skin: Warm and Dry
Neuro: Oriented and Nonfocal/Grossly Intact; Negative Slurred Speech or Facial Droop
Hematologic / Lymphatic: No Lymphadenopathy
73-year-old male with PMH significant for IDDM, PE in May, on Eliquis peripheral neuropathy, who presents with 3-4 days (since Sunday) of worsening swelling/edema and redness, to the left lower leg , associated with blisters on the site of prior
amputation of the large toe that are weeping. He had chills last week. He had epidural steroid injection last week. No fevers, no chills, no n/v/d. No pain due to neuropathy.. He has been seeing wound care for an abrasion on the left knee. He
sees Exhaust Machine Operator Dr. Hemphill as OP s/p b/l first toe amputations .
# chronic left lower extremity threatening ischemia
s/p left lower extremity arteriogram with balloon angioplasty + stent by Dr Casiano on 01/16, c/w aspirin for now, monitor progress of wound healing. Pt feels no pain. Resumed Eliquis
# LLE and foot cellulitis associated
s/p previous Left 1st Metatarsal Head Resection
Wound seems to be stable with no spreading edges.
c/w IV Abx vancomycin and Zosyn-stopped and transitioned to augmentin
WBC normalized.
blood culture is no growth
No fevers
Pain control with Tylenol
Elevate the leg with rohan wrap/ Tubigrip dressing to decrease edema
s/p mild drainge of left forefoot blister per podiatry
OP f/u
# Edema in Lower extremity
Mild elevation Pro-BNP
No hx of CHF
Status post arteriogram with angioplasty on 01/16
Continue aspirin
# Hyponatremia, mild, no confusion.
# Essential Hypertension
On amlodipine, hydralazine, Lisinopril.
#Hyperlipidemia
# Diabetes Mellitus, Insulin Dependence
c/w iSS. Pre-meal insulin has been decreased. Pt understand to increase premeal dose if POC elevated at home.
POC am was elevated. will increase lantus back to home dose 26u
# Peripheral diabetic Neuropathy
# Right Knee Replacement
Bilateral Great Toe Amputation
DVT proph-Eliquis
Full Code
More than 30 minutes spent in discharge including
Final examination of the patient
Summarizing hospital stay
Instructions for continuing care to all relevant caregivers
Preparation of discharge records, prescriptions, and referral forms
Total time spent (in minutes): 45
Anticipated Discharge: Today
Subjective/Interval History
-
Date of Service: January 22, 2024
feeling better
denies foot pain
Objective Data
-
Labs:
Laboratory Results
01/22/24
06:14
BUN 19
Creatinine 1.0
Vital Signs:
Vital Signs
Temp Pulse Resp BP Pulse Ox
98.1 F 70 18 113/64 97
01/22/24 07:00 01/22/24 07:00 01/22/24 07:00 01/22/24 07:00 01/22/24 07:00
I&O
01/21/24 01/22/24 01/23/24
06:59 06:59 06:59
Intake Total 1060 / 1060 1655 / 1655
Output Total 1889 / 1889 3525 / 3525
Balance -830 / -830 -0 / -1869
--- NOTE | 2024-01-22 12:39 | CM ---
CM reviewed chart, patient seen bedside with nurse, discussed plan for discharge today. Patient agreeable to discharge home with [facility]N. Patient confirms he has transportation home. CM will continue to follow for all discharge planning needs.
Plan; home with VN
VN
[2024-01-22] MEDS: NOVOLOG FLEXPEN SC (12:47)
--- NOTE | 2024-01-22 14:55 | W.DCSUMMARY ---
Discharge Summary
Discharge Data
Date of Admission: 01/15/24
Date of Discharge: 01/22/24
-
Pending Results: No
Hospital Course
73-year-old male with PMH significant for IDDM, PE in May, peripheral neuropathy, who presents with 3-4 days of worsening swelling/edema and redness, to the left lower leg , associated with blisters on the site of prior amputation of the
large toe that are weeping. He had chills last week. He had epidural steroid injection last week. No fevers, no chills, no n/v/d. No pain due to neuropathy.. He has been seeing wound care for an abrasion on the left knee. He sees Health Facilities Surveyor
Kan[place] as OP s/p b/l first toe amputations. chronic left lower extremity threatening ischemia s/p left lower extremity arteriogram with balloon angioplasty and stent left superficial femoral artery by Dr Casiano on 01/16. Post procedure
started on aspirin per vascular surgery. Post surgery patient was also eval by computer science intern. Patient was also eval by infectious disease. Patient was on IV Vanco and Zosyn. Patient with improvement in wound. Patient be transitioned off IV
antibiotics to p.o. Augmentin for additional 1 week. Patient was also eval by outpatient primary computer science intern who drained left forefoot blister gently and recommended to follow-up outpatient in the clinic. Patient Premeal insulin was decreased.
Lantus dose was continued. Patient agreed for visiting nurses. Patient be discharged home as he stated he has a a lot of additional help if needed at home.
Discharge Plan
-
Patient Disposition: Home with Home Care
Discharge Diagnosis/Procedures: Peripheral arterial disease left lower extremity status post left lower extremity arteriogram with balloon angioplasty and stent placement
Left lower extremity cellulitis
Condition: Fair
Diet: Diabetic, Carb Controlled and Restrict fluids to 48 oz
Activity: No strenuous activity
Driving Restrictions: Not until seen by your Dr
Bathing Restrictions: OK to Shower
Others Tests: Your repeat arterial ultrasound is scheduled on 02/18/23 at 11AM here at [facility]
Other Services: VN
Activity Restrictions/Additional Instructions:
Wound Care Instructions
L foot, 2nd toe-clean with saline, adaptic, gauze, abd pad, secure with Kerlix, change daily and prn drainage.
R dorsal 2nd toe-clean with saline, Bactroban ointment daily, cover with a clean sock.
Bilateral knee high Madhu wraps and tubigrip (LATEX) size G L knee high, size F R knee high on top as tolerated; remove at bedtime; reapply every morning.
Follow up with Dr. Hemphill.
Follow up with vascular surgeon.
Follow up at wound care center call for an appointment.
Stand Alone Forms: DC Instr - Vascular OR
Referrals:
Dean Aleman MD [Family Provider] - in less than 1 week
Tripp Casiano MD [Active] - 02/22/24 3:45 pm
Vicki Hemphill DPM [Specified Professional Personl] - 01/25/24
Prescriptions:
New
aspirin 81 mg Tablet,Chewable
81 mg PO DAILY Qty: 30 0RF
amoxicillin-pot clavulanate 875-125 mg tablet
1 tab PO BID Qty: 14 0RF
mupirocin 2 % ointment
1 applic topical DAILY Qty: 15 0RF
Rx Instructions:
apply Right 2nd toe
Continued
atorvastatin 20 MG tablet
20 mg PO DAILY
cyanocobalamin (vitamin B-12) 1,000 mcg Tablet
1,000 mcg PO DAILY
hydralazine 10 mg Tablet
10 mg PO TID
lisinopril 20 mg Tablet
20 mg PO DAILY
Jardiance 10 mg Tablet
10 mg PO DAILY
amlodipine 5 mg tablet
5 mg PO BID
insulin glargine [Lantus Solostar U-100 Insulin] 100 unit/mL (3 mL) insulin pen
26 unit SC HS
Eliquis 5 mg tablet
5 mg PO BID
Changed
insulin lispro [Humalog KwikPen Insulin] 100 unit/mL insulin pen
3 unit SC AC Qty: 0 0RF
Discharge Orders:
Discharge Patient (As Directed); Ordered 01/22/24
Ordered By: Aidan Meyer
Discharge Date and Time
Discharge Date/Time: 01/22/24 13:42
Print Language: SWAZI
== END 2024-01-22 13:42 | disposition home health service (06) | DRG 629 ==
LOC: 4 WEST ACU 14:00
PROVIDERS: Internal Medicine; Physician Assistant; Student in an Organized Health Care Education/Training Program; ADMITTING PHYSICIAN Internal Medicine; ATTENDING PHYSICIAN Hospitalist; CONSULT PHYSICIAN Podiatrist Foot & Ankle Surgery; EMERGENCY PHYSICIAN Emergency Medicine; FAMILY PHYSICIAN Family Medicine; OTHER PHYSICIAN Internal Medicine Infectious Disease; OTHER PHYSICIAN Surgery Vascular Surgery
PROC: B41G1ZZ Fluoroscopy of Left Lower Extremity Arteries using Low Osmolar Contrast (ICD-10-PCS; 2024-01-17)
PROC: 047L34Z Dilation of Left Femoral Artery with Drug-eluting Intraluminal Device, Percutaneous Approach (ICD-10-PCS; 2024-01-17)
PROC: 047S3ZZ Dilation of Left Posterior Tibial Artery, Percutaneous Approach (ICD-10-PCS; 2024-01-17)
PROC: B4101ZZ Fluoroscopy of Abdominal Aorta using Low Osmolar Contrast (ICD-10-PCS; 2024-01-17)
PROC: B41C1ZZ Fluoroscopy of Pelvic Arteries using Low Osmolar Contrast (ICD-10-PCS; 2024-01-17)
DX: E11.621 Type 2 diabetes mellitus with foot ulcer (principal); E87.1 Hypo-osmolality and hyponatremia; L03.116 Cellulitis of left lower limb; I70.245 Atherosclerosis of native arteries of left leg with ulceration of other part of foot; L97.529 Non-pressure chronic ulcer of other part of left foot with unspecified severity; E11.42 Type 2 diabetes mellitus with diabetic polyneuropathy; E78.00 Pure hypercholesterolemia, unspecified; I10 Essential (primary) hypertension; E11.40 Type 2 diabetes mellitus with diabetic neuropathy, unspecified; E11.51 Type 2 diabetes mellitus with diabetic peripheral angiopathy without gangrene; Z60.2 Problems related to living alone; Z79.4 Long term (current) use of insulin; Z79.01 Long term (current) use of anticoagulants; Z89.412 Acquired absence of left great toe; Z79.84 Long term (current) use of oral hypoglycemic drugs; Z86.711 Personal history of pulmonary embolism; Z89.411 Acquired absence of right great toe; Z89.421 Acquired absence of other right toe(s); Z86.718 Personal history of other venous thrombosis and embolism
CPT/HCPCS: 37226; 37228; 73630; 73720; 75625; 75716; 80048; 80053; 80202; 82565; 82962; 83036; 83605; 83880; 84132; 84520; 85025; 85027; 85610; 87040; 87070; 87147; 99285; A9575; C1725; C1760; C1769; C1874; C1887; C1894

== ENCOUNTER → 2024-02-19 10:38 | Outpatient (REF) | payer BC, SELFPAY | LOC: DHVS 10:38 | PROVIDERS: ATTENDING PHYSICIAN Surgery Vascular Surgery; FAMILY PHYSICIAN Family Medicine; REFERRING PHYSICIAN Podiatrist Foot & Ankle Surgery | DX: I73.9 Peripheral vascular disease, unspecified (principal) | CPT/HCPCS: 93922; 93925 ==

== ENCOUNTER → 2024-08-21 14:40 | Outpatient (REF) | payer BC, SELFPAY | LOC: DHVS 14:40 | PROVIDERS: ATTENDING PHYSICIAN Surgery Vascular Surgery | DX: I73.9 Peripheral vascular disease, unspecified (principal) | CPT/HCPCS: 93922; 93925 ==